=== PATIENT | male | born 1950 | race Caucasian/White ===

== ENCOUNTER 2019-05-20 10:13 | Inpatient (IN) | payer MEDICARE, OTHER ==
--- NOTE | 2019-05-20 10:29 | ED ---
Shortness of Breath - HPI Summary HPI Summary: This patient is a 69 year old male presenting to [facility] with a chief complaint of hypertension and SOB since one week ago. Pt c/o swelling and rash in feet bilaterally, and abdominal distension. Pt denies any fever, chills, erythema of eyes, sore throat, CP, cough, abdominal pain, N/V, dysuria, hematuria, myalgia, or dizziness. - History of Current Complaint Chief Complaint: EDShortnessOfBreath Hx Obtained From: Patient Onset/Duration: Lasting Weeks Dyspnea At: Rest Associated Signs & Symptoms: Edema - Allergy/Home Medications Allergies/Adverse Reactions: Allergies Allergy/AdvReac Type Severity Reaction Status Date / Time No Known Allergies Allergy Verified 05/20/19 10:14 Home Medications: Home Medications NK [No Home Medications Reported] 05/20/19 [History Confirmed 05/20/19] PMH/Surg Hx/FS Hx/Imm Hx Cardiovascular History: Reports: Hx Hypertension GI History: Reports: Hx Gastroesophageal Reflux Disease, Hx Hiatal Hernia Infectious Disease History: No Infectious Disease History: Denies: Traveled Outside the [place] in Last 30 Days - Family History Known Family History: Positive: Hypertension - Social History Lives: Alone Alcohol Use: None Review of Systems Negative: Fever, Chills Negative: Erythema Negative: Sore Throat Positive: Other - Hypertension. Negative: Chest Pain Positive: Shortness Of Breath. Negative: Cough Positive: Other - Abdominal distension. Negative: Abdominal Pain, Vomiting, Nausea Negative: dysuria, hematuria Positive: Edema. Negative: Myalgia Positive: Rash Neurological: Other - Neg: Dizziness All Other Systems Reviewed And Are Negative: No Physical Exam - Summary Physical Exam Summary: Constitutional: Well-developed, Well-nourished, Alert. (-) Distressed Skin: Warm, Dry HENT: Normocephalic; Atraumatic Eyes: Conjunctiva normal Neck: Musculoskeletal ROM normal neck. (-) JVD, (-) Stridor, (-) Tracheal deviation Cardio: Rhythm regular, rate tachycardic, Heart sounds normal; Intact distal pulses; The pedal pulses are 2+ and symmetric. Radial pulses are 2+ and symmetric. (-) Murmur Pulmonary/Chest wall: Effort normal. (-) Respiratory distress, (-) Wheezes, (+) Rales Abd: Soft, (-) tenderness, (-) Distension, (-) Guarding, (-) Rebound Musculoskeletal: (+) 2+ pitting edema up to the mid calf with weeping. Lymph: (-) Cervical adenopathy Neuro: Alert, Oriented x3 Psych: Mood and affect Normal Triage Information Reviewed: Yes Vital Signs On Initial Exam: Initial Vitals Temp Pulse Resp BP Pulse Ox 97.4 F 127 40 185/133 95 05/20/19 10:14 05/20/19 10:14 05/20/19 10:14 05/20/19 10:14 05/20/19 10:14 Vital Signs Reviewed: Yes Diagnostics - Vital Signs Vital Signs Temp Pulse Resp BP Pulse Ox 05/20/19 10:14 97.4 F 127 40 185/133 95 - Laboratory Result Diagrams: 05/20/19 12:38 05/20/19 14:25 Lab Statement: Any lab studies that have been ordered have been reviewed, and results considered in the medical decision making process. - Radiology CXR Radiology Interpretation Completed By: Radiologist Summary of Radiographic Findings: Cardiomegaly with no definite evidence of pneumonia. ED Provider has reviewed this report. - EKG 1054 Cardiac Rate: Tachycardia - 105 BPM EKG Rhythm: Sinus Rhythm Summary of EKG Findings: TWI in V5 and V6 Course/Dx - Course Course Of Treatment: This patient is a 69 year old male presenting to [facility] with a chief complaint of shortness of breath. CXR revealed cardiomegaly. Dr. Staton, hospitalist, accepted the patient for admission. This plan was discussed with the pateint and she was agreeable with this plan. - Diagnoses Provider Diagnoses: CHF exacerbation - Critical Care Time Critical Care Time: 30-74 min - 60 mins Discharge ED - Sign-Out/Discharge Documenting (check all that apply): Patient Departure - Admission Patient Received Moderate/Deep Sedation with Procedure: No - Discharge Plan Condition: Stable Disposition: ADMITTED TO [facility] - Attestation Statements Document Initiated by Scribe: Yes Documenting Scribe: Tone Case Provider For Whom Scribe is Documenting (Include Credential): Aneudy Santillan MD Scribe Attestation: Tone Nelson, scribed for Aneudy Santillan MD on 05/20/19 at 1628. Status of Scribe Document: Ready
[2019-05-20] MEDS ORDERED: Furosemide IV* 10 MG/ML VIAL (40 MG) IV SLOW PU ONE (10:42)
[2019-05-20] MEDS ORDERED: Nitro 2% OINT* (Nitroglycerin) 1 INCH/PAK PAK TOPICAL ONE (10:42)
[2019-05-20 13:35] LABS: Albumin 3.7 g/dL (3.2-5.2); CO2 Carbon Dioxide 19 mmol/L (22-32); Calcium 8.8 mg/dL (8.6-10.3); Chloride 108 mmol/L (101-111); Sodium 139 mmol/L (135-145)
[2019-05-20 13:38] LABS: Troponin I 0.23 ng/mL (<0.04)
[2019-05-20 13:41] LABS: ALT 30 U/L (7-52); Albumin/Globulin Ratio 1.5 (1-3); Alkaline Phosphatase 121 U/L (34-104); BUN/Creatinine Ratio 18.8 (8-20); Blood Urea Nitrogen 28 mg/dL (6-24); EGFR African American 56.8 (>60); EGFR Non-African American 46.9 (>60); Globulin 2.4 g/dL (2-4); Glucose 90 mg/dL (70-100); Total Protein 6.1 g/dL (6.4-8.9)
[2019-05-20 13:44] LABS: Anion Gap 12 mmol/L (2-11)
[2019-05-20 13:51] LABS: ABS Eosinophils 0.1 10^3/ul (0-0.6); ABS Lymphocytes 0.6 10^3/ul (1.0-4.8); ABS Monocytes 0.9 10^3/ul (0-0.8); ABS Neutrophils 7.8 10^3/ul (1.5-7.7); Eosinophil % 0.6 %; Hematocrit 52 % (42-52); Hemoglobin 16.8 g/dL (14.0-18.0); Lymphocyte % 6.6 %; Mean Corpuscular HGB Conc 32 g/dL (31-36); Mean Corpuscular Hemoglobin 30 pg (27-31); Mean Corpuscular Volume 93 fL (80-94); Mean Platelet Volume 10.7 fL (7.4-10.4); Platelet Count 206 10^3/uL (150-450); Red Blood Count 5.57 10^6 /uL (4.18-5.48); Red Cell Distribution Width 18 % (10-15); White Blood Count 9.4 10^3/uL (3.5-10.8)
[2019-05-20] MEDS ORDERED: ED ceFAZolin 1 GM/50 ML 1 GM/50 ML PREMIX.SET IVPB ONE (15:19)
[2019-05-20] MEDS ORDERED: Metoprolol Tartrate IV* 1 MG/ML 5 ML VIAL IV PRN (15:30)
[2019-05-20] MEDS ORDERED: ceFAZolin 1 GM* X ONE DOSE (AddVan) IVPB ×2 (16:00)
[2019-05-20] MEDS ORDERED: NS 0.9% 50 ML* 50 ML with ceFAZolin 1 GM ADVAN(*) 1 GM IVPB ONE ×2 (16:00)
[2019-05-20] MEDS ORDERED: Perflutren Lipid Microsphere* 3 ML VIAL ONE (16:14)
[2019-05-20] MEDS ORDERED: Metoprolol Tartrate TAB* 25 MG PO SCH (17:00)
--- NOTE | 2019-05-20 17:10 | ECHO ---
*[facility]* [place] [address] Fax #: [phone] Transthoracic Echocardiogram Patient: Tone Borjas : 1950 Study Date: 05/20/2019 Age: 69 Gender: M HR: 131 bpm Height: 65 in /165.1 cm BSA: 2.17 m^2 Weight: 249.5 lb /113.4 kg BMI: 41.6 kg/m^2 *Industrial Sewer: * Elva Hickman [facility] *Referring Physician: * April AzarReading Physician: Luigi Rivera MD Indications: Congestive Heart Failure. SOB. History: Edema. Risk factors: Hypertension. Conclusions Summary: - Left ventricle: The cavity size is normal. Wall thickness is moderately increased. Systolic function is severely reduced. The estimated ejection fraction is 25-30%. Moderate diffuse hypokinesis. - Right ventricle: The cavity size is normal. Systolic function is mildly to moderately reduced. - Left atrium: The atrium is mildly dilated. - Aortic valve: There is mild to moderate regurgitation. Recommendations: None prior for comparison. Study data: Transthoracic echocardiogram. Procedure: Transthoracic echocardiography was performed. Image quality was suboptimal. The study was technically limited due to body habitus. Intravenous Definity , 6 mlswas administered. Image enhancement administered by Complete 2D, spectral Doppler, and color flow Doppler. Location: Emergency department. Rhythm: Atrial fibrillation. Findings Left ventricle: The cavity size is normal. Wall thickness is moderately increased. Systolic function is severely reduced. The estimated ejection fraction is 25-30%. Moderate diffuse hypokinesis. Doppler parameters are consistent with abnormal left ventricular relaxation (grade 1 diastolic dysfunction). Right ventricle: Not well visualized. The cavity size is normal. Systolic function is mildly to moderately reduced. Ventricular septum: The ventricular septum is normal. Left atrium: Well visualized. The atrium is mildly dilated. Right atrium: Well visualized. The atrium is normal in size. Mitral valve: Well visualized. The leaflets are normal thickness. There is no evidence of stenosis. There is no significant regurgitation. Aortic valve: Well visualized. The valve is trileaflet. The leaflets are normal thickness. There is no evidence of stenosis. There is mild to moderate regurgitation. Tricuspid valve: Poorly visualized. There is no evidence of stenosis. There is trace to mild regurgitation. Regurgitatiopn may be underestimated due to poor image quality. Pulmonic valve: Well visualized. There is no evidence of stenosis. Aorta: The aorta is well visualized and normal size. The aortic root appears normal. Pericardium: There is no pericardial effusion. No evidence of pleural fluid accumulation. Pulmonary arteries: Not well visualized. Systolic pressure is within the normal range. Systemic veins: Not well visualized. Pulmonary veins: Visualization of the pulmonary venous anatomy is incomplete, but a significant abnormality is unlikely. Measurements Left ventricle Value Ref Aortic valve Value Ref JONATHAN, LAX 4.7 cm 4.2 - Trista diam, ED 2.3 cm ----- 5.8 Trista diam/bsa, ED 1.1 cm/m^2 ----- ESD, LAX 3.8 cm 2.5 - Peak v, S 1.14 m/sec ----- 4.0 VTI, S 18.5 cm ----- FS, LAX (L) 20 % 25 - 43 Mean grad, S 3.0 mm Hg ----- PW, ED, LAX (H) 1.9 cm 0.6 - Peak grad, S 5.0 mm Hg ----- 1.0 LVOT/AV, VTI ratio 0.71 ----- FS (L) 20 % 25 - 43 AR peak v 2.88 m/sec ----- Mid-wall FS 6 % -------- AR PHT 278 ms ----- PW, ED (H) 1.9 cm 0.6 - AR peak grad 33 mm Hg ----- 1.0 PW/ID, ED 0.4 -------- Mitral valve Value Ref E', lat trista, TDI (L) 6.8 cm/sec >=10.0 Peak E 1.07 m/sec -- --- E/e', lat trista, TDI 16 -------- Decel time 99 ms ----- E', med trista, TDI (L) 4.0 cm/sec >=7.0 Peak grad, D 4.6 mm Hg -- --- E/e', med trista, TDI 27 -------- E', avg, TDI 5.4 cm/sec -------- Pulmonic valve Value Ref E/e', avg, TDI (H) 20 <=14 Peak v, S 0.42 m/sec -- --- Peak grad, S 1.0 mm Hg ----- LVOT Value Ref Peak nyla, S 0.85 m/sec -------- Tricuspid valve Value Ref VTI, S 13.1 cm -------- TR peak v 2.79 m/sec <=2.8 Mean grad, S 1 mm Hg -------- Peak RV-RA grad, S 31 mm Hg ----- Max TR nyla 2.45 m/sec ----- Ventricular septum Value Ref IVS, ED (H) 1.9 cm 0.6 - Aortic root Value Ref 1.0 Root diam (H) 4.5 cm <4.3 Root max diam, ED (H) 4.5 cm <4.3 Right ventricle Value Ref JONATHAN, LAX 4.2 cm -------- Aortic arch Value Ref JONATHAN minor ax, A4C (H) 4.2 cm 1.9 - Arch diam 3.1 cm ----- mid 3.5 Decending aorta Value Ref Left atrium Value Ref Lai peak nyla 0.51 m/sec ----- ML dim, A4C 5.7 cm -------- SI dim, A4C 6.4 cm -------- Vol, ES, 1-p A2C 54 ml 18 - 58 Vol/bsa, ES, 1-p 25 ml/m^2 11 - 43 A2C Right atrium Value Ref SI dim, ES (H) 6.7 cm 3.4 - 5.3 ML dim, ES, A4C 3.9 cm 2.6 - 4.4 SI dim, ES, A4C (H) 6.7 cm 3.4 - 5.3 SI dim/bsa, ES, A4C (H) 3.1 cm/m^2 1.8 - 3.0 Legend: (L) and (H) jose miguel values outside specified reference range. Prepared and electronically signed by Luigi Maier MD 05/20/2019 17:10
[2019-05-20] MEDS: Furosemide IV* 10 MG/ML VIAL (40 MG) IV SLOW PU SCH (17:54)
[2019-05-20] MEDS: Carvedilol TAB* 6.25 MG PO SCH ×2 (17:54→20:59)
--- NOTE | 2019-05-20 18:24 | CONSULT ---
Subjective Date of Service: 05/20/19 Interval History: Date of consult 05/20/2019 Service: Hospitalist PCP: None current CC: shortness of breath, edema Reason for consult: CHF HPI: Mr. Borjas is a very nice 69 year old man who is admitted with worsening dyspnea and edema and diagnosed with new congestive heart failure and is severely hypertensive. His brother Kevin who is a patient of Dr. Carpenter is with patient. Kevin has been trying to get an appointment for Tone with Dr. Vicente (they have heard Dr. Vicente speak on the radio) to establish Primary care. Patient used to see Dr. Vagras Monet years ago and his only prior major medical issue was what sounds like a bleeding hiatal hernia that was surgically years ago. His blood pressure was also elevated in the past. There have been no issues since, he is not anemic, and I would not have any more than usual concern about antiplatelets or anticoagulants. He did not have insurance so was not able to see doctors in the past but now has medicare. He had been feeling unwell since this winter. He's had progressive VILA, weight gain, edema , abdominal bloating, orthopnea and PND. There has been no chest pain, sustained palpitations or syncope. PAST MEDICAL HISTORY: Hypertension PAST SURGICAL HISTORY: Status post hiatal hernia repair in the early . Soc hx: Had used a lawnmower for 18 years [email or web address] [employer] and he states he did very well with this and then went on social security. No excessive alcohol use No tobacco use No drug use Lives in an apartment above brothers garage ALLERGIES: No known drug allergies. FAMILY HISTORY: Father had a history of prostate cancer. Mother had a history of diabetes. Medications Active Medications: Acetaminophen (Tylenol Tab*) 650 mg PO Q6H PRN PRN Reason: MILD PAIN or TEMP > 100.4 Aspirin (Aspirin Ec Tab*) 81 mg PO DAILY [facility] Carvedilol (Coreg Tab*) 6.25 mg PO BID [facility] Last Admin: 05/20/19 17:54 Dose: 6.25 mg Furosemide (Lasix Iv*) 40 mg IV SLOW PU DAILY [facility] Last Admin: 05/20/19 17:54 Dose: 40 mg Heparin Sodium (Porcine) (Heparin Vial(*)) 5,000 units SUBCUT Q8HR [facility] Cefazolin Sodium 1 gm/ Sodium (Chloride) 50 mls @ 200 mls/hr IVPB Q8H [facility] Metoprolol Tartrate (Lopressor Iv*) 5 mg IV Q4H PRN PRN Reason: SBP>180 or HR>120 Nitroglycerin (Nitroglycerin 2% Oint*) 1 inch TOPICAL 0800,1400 [facility]; Protocol Nystatin (Nystatin Top Powder*) 1 applic TOPICAL TID [facility] Pharmacy Profile Note (Nitro Patch/Oint Remove*) 1 note PATCH OFF 1400,2000 [facility] Home Medications: NK [No Home Medications Reported] 05/20/19 [History Confirmed 05/20/19] Review of Systems - Measurements Intake and Output: Intake and Output Last 24 Hours 05/18/19 05/19/19 05/20/19 05/21/19 06:59 06:59 06:59 06:59 Intake Total 100 Output Total 1300 Balance -1200 Weight 262 lb Intake: IV Fluids 100 Output: Dodd 1300 Other: Date of Last Bowel 05/20/2019 Movement # Bowel Movements 1 Estimated Stool Amount Medium - Review of Systems Constitutional Symptoms: Positive: Weight Gain, Weakness, Fatigue Dermatology: Positive: Rash, Skin Lesions HEENT: Negative: Change in Hearing, Vertigo Eyes: Negative: Change in Vision, Double Vision Thyroid: Positive: Weight Gain Negative: Weight Loss Pulmonary: Positive: Cough, Respiratory Distress, Shortness of Breath, Exercise Intolerance Negative: Hemoptysis, Wheezing, COPD, Asthma, Home Oxygen Cardiology: Positive: Shortness of Breath, Swelling of Ankles, Edema, Orthopnea Negative: Chest Pain, Palpitations, Peripheral Vascular Dis, Syncope, Claudication Gastroenterology: Negative: Abdominal Pain, Nausea, Vomiting, Anorexia, Haematemesis, Melena Genital - Urinary: Negative: Dysuria, Hematuria Musculoskeletal: Negative: Joint Pain, Joint Stiffness Endocrinology: Positive: Obesity Negative: Diabetes, Polydipsia, Polyuria Hematologic/Lymphatic: Negative: Use of Anticoagulant, Use of Antiplatelet Drugs Neurology: Negative: Hx of Stroke\TIA, Hx Seizures Psychiatry: Negative: Unusual Anxiety, Suicidal Ideation Allergic/Immunologic: Negative: Hx HIV, Immunocompromise Review of Systems Statement: All other review of systems negative, unless stated above. Objective Vital Signs: Temp Pulse Resp BP Pulse Ox 98.6 F 108 22 159/103 99 05/20/19 17:32 05/20/19 17:32 05/20/19 17:32 05/20/19 17:32 05/20/19 17:32 Appearance: obese, conversant, appears dyspneic Ears/Nose/Mouth/Throat: Clear Oropharnyx, Mucous Membranes Moist Neck: Trachea Midline, - - uncertain jvp Respiratory: - - tachypnea and increased work of breathing, no clear rales Cardiovascular: - - tachycardic, irregular, +s3, no significant murmur Abdominal: - - obese, soft Extremities: - - 3+ edema with what appears to be excoriations from fingernails and some ulcerations Neurological: Alert and Oriented x 3 Laboratory Results: 05/20/19 12:38 05/20/19 14:25 Total Bilirubin 1.30 mg/dL (0.2-1.0) H 05/20/19 12:38 AST TNP 05/20/19 14:25 ALT 30 U/L (7-52) 05/20/19 12:38 Alkaline Phosphatase 121 U/L (34-104) H 05/20/19 12:38 B-Natriuretic Peptide > 1300 pg/mL (<=100) H 05/20/19 12:38 Total Protein 6.1 g/dL (6.4-8.9) L 05/20/19 12:38 Albumin 3.7 g/dL (3.2-5.2) 05/20/19 12:38 Globulin 2.4 g/dL (2-4) 05/20/19 12:38 Albumin/Globulin Ratio 1.5 (1-3) 05/20/19 12:38 05/20/19 12:38 Troponin I 0.23 H* Diagnostic Imaging: Transthoracic Echocardiogram Study Date: 05/20/2019 Summary: - Left ventricle: The cavity size is normal. Wall thickness is moderately increased. Systolic function is severely reduced. The estimated ejection fraction is 25-30%. Moderate diffuse hypokinesis. - Right ventricle: The cavity size is normal. Systolic function is mildly to moderately reduced. - Left atrium: The atrium is mildly dilated. - Aortic valve: There is mild to moderate regurgitation. CXR 05/20/19 IMPRESSION: Cardiomegaly with no definite evidence of pneumonia. EKG Data: EKG admission: sinus tachycardia 105 bpm with multiple PAC's, PVC, anterolateral TWI, grossly unchanged on repeat Assessment/Plan 1. New onset acute systolic HF - LVEF 25% - No evidence of an acute type 1 [place] 2. Hypertension 3. Obesity 4. ? CKD 5. Cellulitis - Continue aspirin 81 mg po daily for now - Start coreg 6.25 mg po bid (ordered) - Start valsartan 20 mg po bid (ordered) - Continue topical nitrates - Continue IV diuresis, trend i/o, weights, bmp - Can stop trending troponins - Continue antibiotics per primary service Plan on cardiac catheterization to determine if CHF is ischemic related and have intent for revascularization this hospitalization Risks, benefits, and alternative discussed and patient wishes to proceed. Patient will need to establish with a PCP after discharge, hopefully through Dr. Vicente's office. Thank you for allowing me to participate in the cardiovascular care of this patient. Please do not hesitate to contact me with questions or concerns.
[2019-05-20 19:03] LABS: Troponin I 0.28 ng/mL (<0.04)
[2019-05-20 19:04] LABS: Potassium Redraw 4.3 mmol/L (3.5-5.0)
--- NOTE | 2019-05-20 20:01 | HP ---
CC: Dr. Luigi Maier HISTORY AND PHYSICAL: DATE OF ADMISSION: 05/20/19 TIME OF EVALUATION: 2:45 p.m. PRIMARY CARE PROVIDER: The patient has no primary care provider. CONSULTING CASE MANAGEMENT ASSISTANT: Dr. Luigi Maier CHIEF COMPLAINT: "I cannot take it anymore." HISTORY OF PRESENT ILLNESS: Mr. Borjas is a 69-year-old male with no significant past medical history but has not seen a physician in 15 years. He used to be Dr. Vargas Monet's patient and states that he would have a physical every year and his last visit was 15 years ago. He states that at that time he had "borderline hypertension" and he did not return for any further evaluation. He states since early summer this year, he started to have some shortness of breath initially with exertion and this has progressed to dyspnea with minimal exertion, orthopnea, and paroxysmal nocturnal dyspnea. He initially thought his shortness of breath was secondary to the heat, so he bought a fan, then his brother bought an AC, but he continued to have shortness of breath. He lives in an apartment on top of his brother's garage and it got to the point that he became so short of breath going upstairs that he has now left his apartment for the past 4 to 5 weeks. He also described bilateral lower extremity edema that he initially states started a couple days ago, but with further questioning, seems to have started at the same time of the shortness of breath. He describes a weight gain of almost 40 pounds. His shoes do not fit him anymore and he states that he could not zip up his pants. Last week, he started to notice a rash on his feet that has progressed up to lower extremities. He also describes a rash on his belly. He denies fever, chills, nausea, vomiting, chest pain, palpitations, or urinary complaints. In the emergency room, he was found to be retaining urine and a Dodd catheter was placed with drainage of greater than 1 L. PAST MEDICAL HISTORY: Hypertension as above. PAST SURGICAL HISTORY: Status post hiatal hernia repair in the early . MEDICATION LIST: None. He also takes no supplements, [id number] medications. ALLERGIES: No known drug allergies. FAMILY HISTORY: Father had a history of prostate cancer. Mother had a history of diabetes. SOCIAL HISTORY: The patient denies tobacco, alcohol, and drug use. He lives in an apartment at his brother's home and he is his surrogate decision maker, Kevin Borjas, phone number is [phone]. REVIEW OF SYSTEMS: A 14-point review of systems was performed, and all the pertinent negative and positive findings are in the HPI. PHYSICAL EXAMINATION GENERAL: The patient is a pleasant elderly gentleman, sitting up in the ED stretcher, in mild respiratory distress. VITAL SIGNS: Temperature 97.4, heart rate is 94, respiratory rate is 26, oxygen saturation 92% on room air, blood pressure is 154/103. HEENT: Pupils are equal. Moist mucous membranes. CHEST: Breath sounds bilaterally with bibasilar crackles and diffusely coarse. CVS: Normal S1, S2. Irregular rhythm. ABDOMEN: Obese, soft, nontender, nondistended. Organomegaly, it is difficult to palpate due to obese abdomen. EXTREMITIES: The patient has severe bilateral lower extremity edema extending all the way up to his thighs and abdomen. NEURO: He is alert and oriented x3. Able to move all 4 extremities. SKIN: The patient has erythema to bilateral lower extremities extending from foot all the way up to his knee. He has an abrasion on the right forefoot with weeping of clear fluid. He also has erythematous rash to his abdomen associated with some pinpoint lesions to his groin area and also under his neck folds. LABORATORY AND IMAGING DATA: The patient had a CBC that showed WBC of 9.4, hemoglobin of 16.8, hematocrit of 52, platelets of 206,000, neutrophils 83%. Chemistry showed a sodium of 139, potassium was not measured, chloride is 108, bicarb is 19, anion gap is 12, BUN 28, creatinine of 1.49, glucose is 90. Lactic acid is 2.1. Calcium is 8.8. LFTs show a total bilirubin of 1.3, alk phos of 121. First troponin was 0.23. BNP was greater than 1300. Chest x-ray showed cardiomegaly with no evidence of pneumonia. To my read and review of the film, I think there is bilateral vascular congestion. EKG done on 05/20/19 at 10:54 a.m. shows multifocal atrial tachycardia with a heart rate of 105 and PVCs. There is T wave flattening in V4, T wave inversions in V5 and V6. Repeat EKG was done at 3:34 p.m. and still shows multifocal atrial tachycardia at 170 beats per minute with PVCs and the same T wave inversions as described above. ASSESSMENT AND PLAN: Mr. Borjas is a 69-year-old male with limited past medical history but that has not seen a physician in 15 years who presents to the emergency room with months of progressive dyspnea, lower extremity edema, and erythema, found to have newly diagnosed congestive heart failure. 1. Acute congestive heart failure with exacerbation. The patient will be admitted as inpatient to the telemetry floor for further workup. He will need an echocardiogram and we will continue diuresis as tolerated. This is likely multifactorial in the setting of hypertensive cardiomyopathy, multifocal atrial tachycardia, and possible coronary artery disease. Cardiology consultation was requested with Dr. Maier. We will continue diuresis with furosemide and monitor I's and O's and daily weights. 2. Multifocal atrial tachycardia. There was some question initially if this was atrial fibrillation, but I have confirmed with Dr. Maier that he thinks this is multifocal atrial tachycardia. The plan at this point is for rate control with a beta-sara. We would discuss the option for rate control in the setting of acute congestive heart failure and Dr. Maier thinks metoprolol would be the best option at this time, especially considering his hypertension. 3. Troponin elevation. Likely associated with his congestive heart failure and multifocal atrial tachycardia, but we are going to trend troponins. When he is more stable, we may consider ischemic workup. At this point, he is chest pain-free and denies episodes of chest pain in the past. 4. Cellulitis. I believe the patient has bilateral lower extremity cellulitis secondary to edema and excoriations. He will be started on cefazolin. The rash on his groin, abdomen, and neck folds is suggestive of a fungal infection with bacterial superinfection, so he is going to receive nystatin powder and cefazolin should cover that too. The patient meets systemic inflammatory response syndrome criteria with tachycardia, tachypnea, but I believe those are most likely secondary to his cardiac disease and not secondary to sepsis. The same rationale applies to the lactic acid. I believe this represents poor perfusion in the setting of congestive heart failure and not severe sepsis. The patient does have an infection, but I do not think those findings are related to his cellulitis and they are related to his congestive heart failure. 5. Acute kidney injury with metabolic acidosis. This is likely secondary to poor perfusion in the setting of congestive heart failure. We will continue to diurese and as we are able to improve his hemodynamics, we hope that his renal function will improve. There is probably also component of post renal failure as the patient had urinary retention likely secondary to benign prostatic hyperplasia. A Dodd catheter was placed and we will continue to follow. I am going to repeat his BMP later tonight and if he is still acidotic, we may need to add some Bicitra to his regimen. 6. DVT prophylaxis. The patient has a score of 5 on the DVT prophylaxis Assessment Guide and he will be started on subcutaneous heparin. SCDs are contraindicated in the setting of lower extremity edema and infection. 7. Code status was discussed with the patient and he wishes to be a full code. TIME SPENT: Approximately 65 minutes were spent with the patient and family interview, medical records review, physical examination to complete this admission, more than half of this time was spent [id number] with the patient and coordination of care. [id number]/[facility] #: [id number] KRIS
[2019-05-20] MEDS: Valsartan TAB* 40 MG PO SCH (20:59)
[2019-05-20] MEDS: Nystatin TOP POWDER* 15 GM BTL TOPICAL SCH (21:02)
[2019-05-20] MEDS: Heparin VIAL(*) 5000 UNITS/ML VIAL (FIVE THOUSAND) SUBCUT SCH (22:08)
[2019-05-21] MEDS: ceFAZolin 1 GM ADVAN(*) 1 GM in NS 0.9% 50 ML* 50 ML IVPB SCH ×3 (00:06→16:47)
[2019-05-21 00:19] LABS: CO2 Carbon Dioxide 21 mmol/L (22-32); Calcium 8.4 mg/dL (8.6-10.3); Chloride 106 mmol/L (101-111); Sodium 139 mmol/L (135-145)
[2019-05-21 00:25] LABS: BUN/Creatinine Ratio 18.7 (8-20); Blood Urea Nitrogen 29 mg/dL (6-24); EGFR African American 54.2 (>60); EGFR Non-African American 44.8 (>60); Glucose 109 mg/dL (70-100)
[2019-05-21 00:43] LABS: Anion Gap 12 mmol/L (2-11)
[2019-05-21 02:13] LABS: Troponin I 0.24 ng/mL (<0.04)
[2019-05-21 05:10] LABS: ABS Lymphocytes 0.4 10^3/ul (1.0-4.8); ABS Monocytes 1.1 10^3/ul (0-0.8); ABS Neutrophils 10.7 10^3/ul (1.5-7.7); Eosinophil % 0.1 %; Hematocrit 46 % (42-52); Hemoglobin 14.9 g/dL (14.0-18.0); Lymphocyte % 3.2 %; Mean Corpuscular HGB Conc 33 g/dL (31-36); Mean Corpuscular Hemoglobin 30 pg (27-31); Mean Corpuscular Volume 91 fL (80-94); Mean Platelet Volume 10.9 fL (7.4-10.4); Platelet Count 172 10^3/uL (150-450); Red Blood Count 5.06 10^6 /uL (4.18-5.48); Red Cell Distribution Width 17 % (10-15); White Blood Count 12.2 10^3/uL (3.5-10.8)
[2019-05-21 05:30] LABS: Urine Appearance Cloudy; Urine Bacteria Absent (Absent); Urine Bilirubin Negative (Negative); Urine Blood 3+ (Negative); Urine Color Yellow; Urine Glucose Negative (Negative); Urine Ketones Negative (Negative); Urine Nitrite Negative (Negative); Urine Protein 2+(100 mg/dL) (Negative); Urine Red Blood Cell 3+(>10/hpf) (Absent); Urine Specific Gravity 1.013 (1.010-1.030); Urine Urobilinogen Negative (Negative); Urine White Blood Cell 2+(11-20/hpf) (Absent)
[2019-05-21 05:49] LABS: Anion Gap 8 mmol/L (2-11); BUN/Creatinine Ratio 18.5 (8-20); Blood Urea Nitrogen 27 mg/dL (6-24); CO2 Carbon Dioxide 27 mmol/L (22-32); Calcium 8.3 mg/dL (8.6-10.3); Chloride 105 mmol/L (101-111); Cholesterol 93 mg/dL; EGFR African American 58.1 (>60); Glucose 90 mg/dL (70-100); HDL Cholesterol 30.8 mg/dL; LDL Cholesterol 48 mg/dL; Potassium 3.6 mmol/L (3.5-5.0); Sodium 140 mmol/L (135-145); TSH (Thyroid Stimulating Horm) 2.09 mcIU/mL (0.34-5.60); Triglycerides 69 mg/dL; Troponin I 0.31 ng/mL (<0.04)
[2019-05-21] MEDS: Heparin VIAL(*) 5000 UNITS/ML VIAL (FIVE THOUSAND) SUBCUT SCH ×3 (06:09→21:55)
[2019-05-21] MEDS ORDERED: Nitro 2% OINT* (Nitroglycerin) 1 INCH/PAK PAK TOPICAL SCH (08:00)
[2019-05-21] MEDS: Valsartan TAB* 40 MG PO SCH ×2 (08:12→21:56)
[2019-05-21] MEDS: Nystatin TOP POWDER* 15 GM BTL TOPICAL SCH ×3 (08:12→20:21)
[2019-05-21] MEDS: Aspirin EC TAB* 81 MG TAB.EC PO SCH (08:12)
[2019-05-21] MEDS: Carvedilol TAB* 6.25 MG PO SCH ×2 (08:13→20:20)
[2019-05-21] MEDS: Furosemide IV* 10 MG/ML VIAL (40 MG) IV SLOW PU SCH (08:15)
--- NOTE | 2019-05-21 08:59 | PN ---
Subjective Date of Service: 05/21/19 Interval History: HOSPITALIST PROGRESS NOTE Patient seen and examined at bedside. Care reviewed and d/w Josiah Naqvi RN. He feels much improved, in good spirits this AM, eating his breakfast with gusto. States he was able to sleep well last night, despite hypoxia and asymptomatic episode of NSVT. Family History: Unchanged from Admission Social History: Unchanged from Admission Past Medical History: Unchanged from Admission Objective Active Medications: Acetaminophen (Tylenol Tab*) 650 mg PO Q6H PRN PRN Reason: MILD PAIN or TEMP > 100.4 Aspirin (Aspirin Ec Tab*) 81 mg PO DAILY [facility] Last Admin: 05/21/19 08:12 Dose: 81 mg Carvedilol (Coreg Tab*) 6.25 mg PO BID [facility] Last Admin: 05/21/19 08:13 Dose: 6.25 mg Furosemide (Lasix Iv*) 40 mg IV SLOW PU DAILY [facility] Last Admin: 05/21/19 08:15 Dose: 40 mg Heparin Sodium (Porcine) (Heparin Vial(*)) 5,000 units SUBCUT Q8HR [facility] Last Admin: 05/21/19 06:09 Dose: 5,000 units Cefazolin Sodium 1 gm/ Sodium (Chloride) 50 mls @ 200 mls/hr IVPB Q8H [facility] Last Admin: 05/21/19 08:34 Dose: 200 mls/hr Influenza Virus Vaccine (Fluarix Quad [id number] Syr) 0.5 ml IM .ONCE ONE Stop: 05/21/19 09:01 Metoprolol Tartrate (Lopressor Iv*) 5 mg IV Q4H PRN PRN Reason: SBP>180 or HR>120 Nitroglycerin (Nitroglycerin 2% Oint*) 1 inch TOPICAL 0800,1400 [facility]; Protocol Last Admin: 05/21/19 08:15 Dose: 1 inch Nystatin (Nystatin Top Powder*) 1 applic TOPICAL TID [facility] Last Admin: 05/21/19 08:12 Dose: 1 applic Pharmacy Profile Note (Nitro Patch/Oint Remove*) 1 note PATCH OFF 1400,2000 [facility] Pneumococcal Polyvalent Vaccine (Pneumococcal Vac 23-Polyvalent*) 0.5 ml IM .ONCE ONE Stop: 05/21/19 09:01 Spironolactone (Aldactone Tab*) 25 mg PO DAILY [facility] Valsartan (Diovan Tab*) 20 mg PO BID [facility] Last Admin: 05/21/19 08:12 Dose: 20 mg Vital Signs - 8 hr 05/21/19 05/21/19 05/21/19 03:15 04:45 07:15 Temperature 97.6 F 97.6 F 98.0 F Pulse Rate 77 77 78 Respiratory 31 20 Rate Blood Pressure 133/95 133/84 147/78 (mmHg) O2 Sat by Pulse 96 95 96 Oximetry Oxygen Devices in Use Now: Nasal Cannula Appearance: Elderly gentleman sitting up in bed in NAD. Eyes: No Scleral Icterus Ears/Nose/Mouth/Throat: Mucous Membranes Moist Neck: Trachea Midline Respiratory: Symmetrical Chest Expansion and Respiratory Effort, - - BS+ bilaterally with bibasilar crackles Cardiovascular: - - Normal S1 and S2, irregular Abdominal: - - Soft, NT, ND, BS+, obese. Erythematous rash is much improved compared to yesterday, very faint. Extremities: - - Severe bilateral LE pitting edema. Erythema is much improved, weeping is minimal. Multiple excoriations scabbed over Neurological: Alert and Oriented x 3, NL Muscle Strength and Tone Result Diagrams: 05/21/19 04:50 05/21/19 06:00 Assess/Plan/Problems-Billing Assessment: Mr Borjas is a 69yo M with no PMH, who has not seen a physician in 15 years ; who presented to ED with months of progressive dyspnea on exertion, orthopnea , PND, edema with 40lbs weight gain, found to have newly diagnosed CHF. - Patient Problems (1) Acute hypoxemic respiratory failure Comment: - Secondary to CHF exacerbation. - Continue supplemental O2. (2) Acute systolic (congestive) heart failure Comment: - Echo shows EF 25-30%, with moderate diffuse hypokinesis. - Continue diuresis with Furosemide and add Aldactone. - Monitor I/Os and daily weights. - Cardiology input appreciated - continue Aspirin, increase Coreg, Valsartan. - Will need cardiac cath when more stable. (3) Cellulitis Comment: - Abdome and bilateral LE cellulitis. - Much improved today. - Continue Cefazolin. (4) LORAINE (acute kidney injury) Comment: - Improving. - Metabolic acidosis and AG resolved with improved perfusion. (5) V-tach Comment: - 7 beats of Vtach overnight, asymptomatic. - Last night's EKG reviewed and prolonged QTc noted - d/w Cardiology - difficult to measure QTc precisely due to tachycardia. QT prolongation would predispose to polymorphic VT and he had monomorphic VT last night. - Continue to monitor on Telemetry. - Continue Coreg. (6) Multifocal atrial tachycardia Comment: - Continue Coreg. (7) DVT prophylaxis Comment: - SQ heparin. (8) Full code status Status and Disposition: Inpatient. Will order PT when more stable.
[2019-05-21] MEDS ORDERED: Influenza VAC *QUAD* 2019-20* 0.5 ML SYRINGE IM ONE (09:00)
[2019-05-21] MEDS ORDERED: Pneumococcal *Vac Polyvalent 0.5 ML VIAL IM ONE (09:00)
--- NOTE | 2019-05-21 09:48 | PN ---
Subjective Date of Service: 05/21/19 Interval History: f/u CHF Diuresing well, breathing improving remains markedly volume overloaded bp improving no chest pain or lightheadedness NSVT overnight Medications Active Medications: Acetaminophen (Tylenol Tab*) 650 mg PO Q6H PRN PRN Reason: MILD PAIN or TEMP > 100.4 Aspirin (Aspirin Ec Tab*) 81 mg PO DAILY [facility] Last Admin: 05/21/19 08:12 Dose: 81 mg Carvedilol (Coreg Tab*) 6.25 mg PO BID [facility] Last Admin: 05/21/19 08:13 Dose: 6.25 mg Furosemide (Lasix Iv*) 40 mg IV SLOW PU DAILY [facility] Last Admin: 05/21/19 08:15 Dose: 40 mg Furosemide (Lasix Iv*) 80 mg IV ONCE ONE Stop: 05/21/19 14:01 Heparin Sodium (Porcine) (Heparin Vial(*)) 5,000 units SUBCUT Q8HR [facility] Last Admin: 05/21/19 06:09 Dose: 5,000 units Cefazolin Sodium 1 gm/ Sodium (Chloride) 50 mls @ 200 mls/hr IVPB Q8H [facility] Last Admin: 05/21/19 08:34 Dose: 200 mls/hr Metoprolol Tartrate (Lopressor Iv*) 5 mg IV Q4H PRN PRN Reason: SBP>180 or HR>120 Nystatin (Nystatin Top Powder*) 1 applic TOPICAL TID [facility] Last Admin: 05/21/19 08:12 Dose: 1 applic Potassium Chloride (Klor Con Er Tab*) 40 meq PO ONCE ONE Stop: 05/21/19 14:01 Spironolactone (Aldactone Tab*) 25 mg PO DAILY [facility] Valsartan (Diovan Tab*) 40 mg PO BID [facility] Objective Vital Signs: Temp Pulse Resp BP Pulse Ox 98.0 F 78 20 147/78 96 05/21/19 07:15 05/21/19 07:15 05/21/19 07:15 05/21/19 07:15 05/21/19 07:15 Oxygen Devices in Use Now: None Appearance: nad, pleasant Ears/Nose/Mouth/Throat: Clear Oropharnyx, Mucous Membranes Moist Neck: Trachea Midline, - - uncertain jvp Respiratory: Symmetrical Chest Expansion and Respiratory Effort, Clear to Auscultation, - Cardiovascular: RRR, - - + s3 Abdominal: - - obese, soft Extremities: - - 3+ edema with what appears to be excoriations from fingernails and some ulcerations Neurological: Alert and Oriented x 3 Laboratory Results: 05/21/19 04:50 05/21/19 06:00 Total Bilirubin 1.30 mg/dL (0.2-1.0) H 05/20/19 12:38 AST TNP 05/20/19 14:25 ALT 30 U/L (7-52) 05/20/19 12:38 Alkaline Phosphatase 121 U/L (34-104) H 05/20/19 12:38 B-Natriuretic Peptide > 1300 pg/mL (<=100) H 05/20/19 12:38 Total Protein 6.1 g/dL (6.4-8.9) L 05/20/19 12:38 Albumin 3.7 g/dL (3.2-5.2) 05/20/19 12:38 Globulin 2.4 g/dL (2-4) 05/20/19 12:38 Albumin/Globulin Ratio 1.5 (1-3) 05/20/19 12:38 Triglycerides 69 mg/dL 05/21/19 06:00 Cholesterol 93 mg/dL 05/21/19 06:00 LDL Cholesterol 48 mg/dL 05/21/19 06:00 HDL Cholesterol 30.8 mg/dL 05/21/19 06:00 TSH 2.09 mcIU/mL (0.34-5.60) 05/21/19 06:00 mg 05/21/2019 2.0 05/20/19 05/20/19 05/21/19 12:38 18:35 01:01 Troponin I 0.23 H* 0.28 H* 0.24 H* 05/21/19 06:00 Troponin I 0.31 H* Diagnostic Imaging: Transthoracic Echocardiogram Study Date: 05/20/2019 Summary: - Left ventricle: The cavity size is normal. Wall thickness is moderately increased. Systolic function is severely reduced. The estimated ejection fraction is 25-30%. Moderate diffuse hypokinesis. - Right ventricle: The cavity size is normal. Systolic function is mildly to moderately reduced. - Left atrium: The atrium is mildly dilated. - Aortic valve: There is mild to moderate regurgitation. CXR 05/20/19 IMPRESSION: Cardiomegaly with no definite evidence of pneumonia. EKG Data: EKG admission: sinus tachycardia 105 bpm with multiple PAC's, PVC, anterolateral TWI, grossly unchanged on repeat Assessment/Plan 1. New onset acute systolic HF - LVEF 25% - No evidence of an acute type 1 ID 2. Hypertension 3. Obesity 4. Probable mild CKD 5. Cellulitis - Continue aspirin 81 mg po daily for now - Increase coreg from 6.25 mg to 12.5 po bid (ordered) - Increase valsartan from 20 to 40 mg po bid (ordered) - Start spironolactone 25 mg po daily (ordered) - D/c topical nitrates after current dosing expires (ordered) - Continue IV diuresis, trend i/o, weights, bmp. Give another 80 mg IV lasix with 40meq K this afternoon (ordered) - Continue antibiotics per Primary service Plan on cardiac catheterization to determine if CHF is ischemic related and have intent for revascularization this hospitalization once heart failure and cellulitis stabilized Thank you for allowing me to participate in the cardiovascular care of this patient. Please do not hesitate to contact me with questions or concerns.
[2019-05-21] MEDS: Spironolactone TAB* 25 MG PO SCH (10:40)
[2019-05-21] MEDS ORDERED: Nitro Patch/OINT Remove PATCH OFF SCH (14:00)
[2019-05-21] MEDS ORDERED: Potassium Chlor TAB* 20 MEQ TAB.ER PO ONE (14:00)
[2019-05-21] MEDS ORDERED: Furosemide IV* 10 MG/ML 10 ML VIAL (100 MG) IV ONE (14:00)
[2019-05-22] MEDS: ceFAZolin 1 GM ADVAN(*) 1 GM in NS 0.9% 50 ML* 50 ML IVPB SCH ×2 (00:25→09:01)
[2019-05-22] MEDS: Heparin VIAL(*) 5000 UNITS/ML VIAL (FIVE THOUSAND) SUBCUT SCH ×3 (05:37→21:07)
[2019-05-22 07:15] LABS: BUN/Creatinine Ratio 20.4 (8-20); Calcium 7.8 mg/dL (8.6-10.3); EGFR African American 62.5 (>60); EGFR Non-African American 51.7 (>60); Potassium 3.4 mmol/L (3.5-5.0)
[2019-05-22] MEDS ORDERED: Furosemide IV* 10 MG/ML 10 ML VIAL (100 MG) IV SCH (09:00)
[2019-05-22] MEDS: Spironolactone TAB* 25 MG PO SCH (09:01)
[2019-05-22] MEDS: Valsartan TAB* 40 MG PO SCH ×2 (09:01→21:05)
[2019-05-22] MEDS: Aspirin EC TAB* 81 MG TAB.EC PO SCH (09:01)
[2019-05-22] MEDS: Carvedilol TAB* 6.25 MG PO SCH ×2 (09:01→21:07)
[2019-05-22] MEDS: Nystatin TOP POWDER* 15 GM BTL TOPICAL SCH ×3 (09:03→21:06)
[2019-05-22] MEDS ORDERED: Potassium Chloride* LIQUID 20 MEQ/15 ML UDC PO ONE ×2 (09:35→12:01)
--- NOTE | 2019-05-22 09:42 | PN ---
Subjective Date of Service: 05/22/19 Interval History: f/u CHF Diuresing well, but too much oral fluid intake remains volume overloaded BP better no chest pain or lightheadedness tele NSR, pac and pvc's, no arrhythmias overnight Medications Active Medications: Acetaminophen (Tylenol Tab*) 650 mg PO Q6H PRN PRN Reason: MILD PAIN or TEMP > 100.4 Aspirin (Aspirin Ec Tab*) 81 mg PO DAILY [facility] Last Admin: 05/22/19 09:01 Dose: 81 mg Carvedilol (Coreg Tab*) 12.5 mg PO BID [facility] Last Admin: 05/22/19 09:01 Dose: 12.5 mg Furosemide (Lasix Iv*) 80 mg IV DAILY [facility] Last Admin: 05/22/19 09:02 Dose: 80 mg Heparin Sodium (Porcine) (Heparin Vial(*)) 5,000 units SUBCUT Q8HR [facility] Last Admin: 05/22/19 05:37 Dose: 5,000 units Cefazolin Sodium 1 gm/ Sodium (Chloride) 50 mls @ 200 mls/hr IVPB Q8H [facility] Last Admin: 05/22/19 09:01 Dose: 200 mls/hr Nystatin (Nystatin Top Powder*) 1 applic TOPICAL TID [facility] Last Admin: 05/22/19 09:03 Dose: 1 applic Spironolactone (Aldactone Tab*) 25 mg PO DAILY [facility] Last Admin: 05/22/19 09:01 Dose: 25 mg Torsemide (Demadex*) 40 mg PO DAILY [facility] Valsartan (Diovan Tab*) 80 mg PO BID [facility] Objective Vital Signs: Temp Pulse Resp BP Pulse Ox 97.9 F 65 24 132/68 90 05/22/19 08:12 05/22/19 08:12 05/22/19 08:53 05/22/19 08:12 05/22/19 08:12 Oxygen Devices in Use Now: Nasal Cannula Appearance: nad, pleasant Ears/Nose/Mouth/Throat: Clear Oropharnyx, Mucous Membranes Moist Neck: Trachea Midline, - - uncertain jvp Respiratory: Symmetrical Chest Expansion and Respiratory Effort, Clear to Auscultation, - Cardiovascular: RRR, - - distant, no significant murmur appreciated Abdominal: - - obese, soft Extremities: - - 3+ edema, excoriation cellulitis improving Neurological: Alert and Oriented x 3 Laboratory Results: 05/21/19 04:50 05/22/19 06:01 Total Bilirubin 1.30 mg/dL (0.2-1.0) H 05/20/19 12:38 AST TNP 05/20/19 14:25 ALT 30 U/L (7-52) 05/20/19 12:38 Alkaline Phosphatase 121 U/L (34-104) H 05/20/19 12:38 B-Natriuretic Peptide > 1300 pg/mL (<=100) H 05/20/19 12:38 Total Protein 6.1 g/dL (6.4-8.9) L 05/20/19 12:38 Albumin 3.7 g/dL (3.2-5.2) 05/20/19 12:38 Globulin 2.4 g/dL (2-4) 05/20/19 12:38 Albumin/Globulin Ratio 1.5 (1-3) 05/20/19 12:38 Triglycerides 69 mg/dL 05/21/19 06:00 Cholesterol 93 mg/dL 05/21/19 06:00 LDL Cholesterol 48 mg/dL 05/21/19 06:00 HDL Cholesterol 30.8 mg/dL 05/21/19 06:00 TSH 2.09 mcIU/mL (0.34-5.60) 05/21/19 06:00 mg 05/22 2.0 05/20/19 05/20/19 05/21/19 12:38 18:35 01:01 Troponin I 0.23 H* 0.28 H* 0.24 H* 05/21/19 06:00 Troponin I 0.31 H* Diagnostic Imaging: Transthoracic Echocardiogram Study Date: 05/20/2019 Summary: - Left ventricle: The cavity size is normal. Wall thickness is moderately increased. Systolic function is severely reduced. The estimated ejection fraction is 25-30%. Moderate diffuse hypokinesis. - Right ventricle: The cavity size is normal. Systolic function is mildly to moderately reduced. - Left atrium: The atrium is mildly dilated. - Aortic valve: There is mild to moderate regurgitation. CXR 05/20/19 IMPRESSION: Cardiomegaly with no definite evidence of pneumonia. EKG Data: EKG admission: sinus tachycardia 105 bpm with multiple PAC's, PVC, anterolateral TWI, grossly unchanged on repeat Assessment/Plan 1. New onset acute systolic HF - LVEF 25% - No evidence of an acute type 1 MD 2. Hypertension 3. Obesity 4. Probable mild CKD 5. Cellulitis - Continue aspirin 81 mg po daily for now - Continue coreg 12.5 po bid - Increase valsartan from 40 mg to 80 mg po bid (ordered) - Continue spironolactone 25 mg po daily - Continue IV diuresis, trend i/o, weights, bmp. - Continue lasix 80 mg IV QD. Start oral torsemide 40 mg po daily (ordered) in addition to begin overlap and preparation for outpatient regimen - Replace K with 40 mg oral liquid x 2 (ordered) - Continue antibiotics per Primary service Plan on cardiac catheterization to determine if CHF is ischemic related and have intent for revascularization this hospitalization once heart failure and cellulitis stabilized Thank you for allowing me to participate in the cardiovascular care of this patient. Please do not hesitate to contact me with questions or concerns.
[2019-05-22] MEDS: Potassium Chlor TAB* 20 MEQ TAB.ER PO SCH ×2 (13:33→17:28)
[2019-05-22] MEDS ORDERED: Potassium Chlor TAB* 20 MEQ TAB.ER PO ONE (14:00)
--- NOTE | 2019-05-22 15:43 | PN ---
Subjective Date of Service: 05/22/19 Interval History: Patient has no new complaints. He is worried about cardiac surgery. Has been getting OOB to chair for all meals. States breathing is better than admission. Family History: Unchanged from Admission Social History: Unchanged from Admission Past Medical History: Unchanged from Admission Objective Active Medications: Acetaminophen (Tylenol Tab*) 650 mg PO Q6H PRN PRN Reason: MILD PAIN or TEMP > 100.4 Aspirin (Aspirin Ec Tab*) 81 mg PO DAILY [facility] Last Admin: 05/22/19 09:01 Dose: 81 mg Carvedilol (Coreg Tab*) 12.5 mg PO BID [facility] Last Admin: 05/22/19 09:01 Dose: 12.5 mg Furosemide (Lasix Iv*) 80 mg IV DAILY [facility] Last Admin: 05/22/19 09:02 Dose: 80 mg Heparin Sodium (Porcine) (Heparin Vial(*)) 5,000 units SUBCUT Q8HR [facility] Last Admin: 05/22/19 13:33 Dose: 5,000 units Cefazolin Sodium 1 gm/ Sodium (Chloride) 50 mls @ 200 mls/hr IVPB Q8H [facility] Last Admin: 05/22/19 09:01 Dose: 200 mls/hr Nystatin (Nystatin Top Powder*) 1 applic TOPICAL TID [facility] Last Admin: 05/22/19 13:33 Dose: 1 applic Potassium Chloride (Klor Con Er Tab*) 40 meq PO Q4H [facility] Stop: 05/22/19 17:31 Last Admin: 05/22/19 13:33 Dose: 40 meq Spironolactone (Aldactone Tab*) 25 mg PO DAILY [facility] Last Admin: 05/22/19 09:01 Dose: 25 mg Torsemide (Demadex*) 40 mg PO DAILY [facility] Valsartan (Diovan Tab*) 80 mg PO BID [facility] Vital Signs - 8 hr 05/22/19 05/22/19 05/22/19 08:00 08:12 08:53 Temperature 36.6 C Pulse Rate 65 Respiratory 24 32 24 Rate Blood Pressure 132/68 (mmHg) O2 Sat by Pulse 90 Oximetry 05/22/19 11:50 Temperature 36.8 C Pulse Rate 70 Respiratory 28 Rate Blood Pressure 105/59 (mmHg) O2 Sat by Pulse 95 Oximetry Oxygen Devices in Use Now: Nasal Cannula Appearance: obese, alert Ears/Nose/Mouth/Throat: Clear Oropharnyx Neck: NL Appearance and Movements; NL JVP Respiratory: Symmetrical Chest Expansion and Respiratory Effort, Clear to Auscultation Cardiovascular: NL Sounds; No Murmurs; No JVD, RRR, - - 3+ pitting edema bilat LE Skin: - - many healing excoriated lesions on both shins, ankles Neurological: Alert and Oriented x 3 Lines/Tubes/Other Access: Clean, Dry and Intact Peripheral IV Nutrition: Taking PO's Result Diagrams: 05/21/19 04:50 05/22/19 06:01 Microbiology and Other Data: Microbiology 05/20/19 12:38 Aerobic Blood Culture - Preliminary Blood Venous No Growth Day 2 Anaerobic Blood Culture - Preliminary No Growth Day 2 05/20/19 12:39 Aerobic Blood Culture - Preliminary Blood Venous No Growth Day 2 Anaerobic Blood Culture - Preliminary No Growth Day 2 05/21/19 04:50 Urine Culture - Final Urine No Growth (<1,000 CFU/mL) Assess/Plan/Problems-Billing Assessment: Mr Borjas is a 69yo M with no PMH, who has not seen a physician in 15 years ; who presented to ED with months of progressive dyspnea on exertion, orthopnea , PND, edema with 40lbs weight gain, found to have newly diagnosed CHF. - Patient Problems (1) Acute systolic (congestive) heart failure Current Visit: Yes Status: Acute Priority: High Code(s): I50.21 - ACUTE SYSTOLIC (CONGESTIVE) HEART FAILURE SNOMED Code(s): 541297834 Comment: - Cardiology input appreciated - Continue diuresis with Furosemide and add Aldactone. - Monitor I/Os and daily weights. - continue Aspirin, titrated Coreg, Valsartan. - Will need cardiac cath next week (2) Cellulitis Current Visit: Yes Status: Acute Priority: Medium Code(s): L03.90 - CELLULITIS, UNSPECIFIED SNOMED Code(s): 264424798 Comment: - Looks mainly due to chronic stasis - Continued to improved today. - Will switch to PO antbiotics (3) DVT prophylaxis Current Visit: Yes Status: Acute Priority: Low Code(s): Z29.9 - ENCOUNTER FOR PROPHYLACTIC MEASURES, UNSPECIFIED SNOMED Code(s): 124481491 Comment: - SQ heparin. (4) Hypokalemia Current Visit: Yes Status: Acute Priority: Medium Code(s): E87.6 - HYPOKALEMIA SNOMED Code(s): 80107216 Comment: -Has been supplemented today. -Has had VT in last 48 hours -Will recheck in AM Status and Disposition: Inpatient.
[2019-05-22] MEDS: Torsemide TAB* 20 MG PO SCH (16:15)
--- NOTE | 2019-05-22 16:37 | PTEDU ---
Patient Name: NELSON WILL NELSON WILL selected video: Heart Failure to view on 05/22/2019 at 4:35:12 PM from [email or web address]
[2019-05-22] MEDS: Cephalexin CAP* 500 MG PO SCH ×2 (17:28→21:06)
[2019-05-23] MEDS: Heparin VIAL(*) 5000 UNITS/ML VIAL (FIVE THOUSAND) SUBCUT SCH ×3 (05:09→21:17)
[2019-05-23 06:35] LABS: Anion Gap 5 mmol/L (2-11); BUN/Creatinine Ratio 18.5 (8-20); Blood Urea Nitrogen 28 mg/dL (6-24); CO2 Carbon Dioxide 34 mmol/L (22-32); Calcium 8.2 mg/dL (8.6-10.3); Chloride 100 mmol/L (101-111); EGFR African American 55.9 (>60); EGFR Non-African American 46.2 (>60); Glucose 81 mg/dL (70-100); Potassium 4.1 mmol/L (3.5-5.0); Sodium 139 mmol/L (135-145)
[2019-05-23 06:37] LABS: Troponin I 0.17 ng/mL (<0.04)
[2019-05-23] MEDS: Torsemide TAB* 20 MG PO SCH (08:13)
[2019-05-23] MEDS: Furosemide IV* 10 MG/ML VIAL (40 MG) IV SCH (08:13)
[2019-05-23] MEDS: Carvedilol TAB* 6.25 MG PO SCH ×2 (08:13→20:34)
[2019-05-23] MEDS: Spironolactone TAB* 25 MG PO SCH (08:13)
[2019-05-23] MEDS: Aspirin EC TAB* 81 MG TAB.EC PO SCH (08:13)
[2019-05-23] MEDS: Valsartan TAB* 40 MG PO SCH (08:13)
[2019-05-23] MEDS: Cephalexin CAP* 500 MG PO SCH ×4 (08:13→20:34)
[2019-05-23] MEDS: Nystatin TOP POWDER* 15 GM BTL TOPICAL SCH ×3 (08:16→20:33)
[2019-05-23] MEDS ORDERED: Diazepam TAB(*) 5 MG PO PRN (14:37)
[2019-05-23] MEDS ORDERED: diPHENhydraMINE PO* 25 MG PO PRN (14:37)
[2019-05-23 16:59] LABS: ABS Basophils 0.1 10^3/ul (0-0.2); ABS Eosinophils 0.2 10^3/ul (0-0.6); ABS Lymphocytes 0.7 10^3/ul (1.0-4.8); ABS Monocytes 1.3 10^3/ul (0-0.8); ABS Neutrophils 7.1 10^3/ul (1.5-7.7); Eosinophil % 1.7 %; Hematocrit 47 % (42-52); Hemoglobin 15.5 g/dL (14.0-18.0); Lymphocyte % 7.3 %; Mean Corpuscular HGB Conc 33 g/dL (31-36); Mean Corpuscular Hemoglobin 30 pg (27-31); Mean Corpuscular Volume 91 fL (80-94); Nucleated Red Blood Cells % 0.1; Platelet Count 193 10^3/uL (150-450); Red Blood Count 5.16 10^6 /uL (4.18-5.48); Red Cell Distribution Width 17 % (10-15); White Blood Count 9.3 10^3/uL (3.5-10.8)
[2019-05-23 17:36] LABS: BUN/Creatinine Ratio 20.9 (8-20); Calcium 8.2 mg/dL (8.6-10.3); EGFR African American 61.5 (>60); EGFR Non-African American 50.8 (>60); Potassium 3.9 mmol/L (3.5-5.0)
--- NOTE | 2019-05-23 19:13 | PN ---
Subjective Date of Service: 05/23/19 Interval History: Patient has no new complaints. He can walk to bathroom. Legs are less pruritic, less pain. He understands he is having a cardiac cath tomorrow. Family History: Unchanged from Admission Social History: Unchanged from Admission Past Medical History: Unchanged from Admission Objective Active Medications: Acetaminophen (Tylenol Tab*) 650 mg PO Q6H PRN PRN Reason: MILD PAIN or TEMP > 100.4 Aspirin (Aspirin Ec Tab*) 81 mg PO DAILY [facility] Last Admin: 05/23/19 08:13 Dose: 81 mg Carvedilol (Coreg Tab*) 12.5 mg PO BID [facility] Last Admin: 05/23/19 08:13 Dose: 12.5 mg Cephalexin HCl (Keflex Cap*) 500 mg PO QID [facility] Last Admin: 05/23/19 16:17 Dose: 500 mg Diazepam (Valium Tab(*)) 5 mg PO ONCE PRN PRN Reason: scallop binder to Budget Officer Stop: 05/23/19 23:59 Diphenhydramine HCl (Benadryl Po*) 25 mg PO ONCE PRN PRN Reason: scallop binder to Budget Officer Furosemide (Lasix Iv*) 40 mg IV DAILY [facility] Last Admin: 05/23/19 08:13 Dose: 40 mg Heparin Sodium (Porcine) (Heparin Vial(*)) 5,000 units SUBCUT Q8HR [facility] Last Admin: 05/23/19 13:11 Dose: 5,000 units Sodium Chloride (Ns 0.9% 1000 Ml) 1,000 mls @ 75 mls/hr IV .per rate [facility] Nystatin (Nystatin Top Powder*) 1 applic TOPICAL TID [facility] Last Admin: 05/23/19 13:11 Dose: 1 applic Spironolactone (Aldactone Tab*) 25 mg PO DAILY [facility] Last Admin: 05/23/19 08:13 Dose: 25 mg Torsemide (Demadex*) 40 mg PO DAILY [facility] Last Admin: 05/23/19 08:13 Dose: 40 mg Valsartan (Diovan Tab*) 80 mg PO BID [facility] Vital Signs - 8 hr 05/23/19 05/23/19 05/23/19 11:15 12:28 15:12 Temperature 36.2 C 36.8 C Pulse Rate 54 67 Respiratory 21 24 Rate Blood Pressure 103/78 117/77 116/63 (mmHg) O2 Sat by Pulse 91 96 98 Oximetry Oxygen Devices in Use Now: Nasal Cannula Appearance: alert, more talkative Eyes: No Scleral Icterus Ears/Nose/Mouth/Throat: NL Teeth, Lips, Gums, Clear Oropharnyx Neck: NL Appearance and Movements; NL JVP Respiratory: Symmetrical Chest Expansion and Respiratory Effort, Clear to Auscultation Cardiovascular: NL Sounds; No Murmurs; No JVD, RRR, - - 2+ edema bilat LE Abdominal: NL Sounds; No Tenderness; No Distention, - - obese, no masses Lymphatic: No Cervical Adenopathy Skin: - - excoriations on legs bilat Neurological: Alert and Oriented x 3 Lines/Tubes/Other Access: Clean, Dry and Intact Peripheral IV Nutrition: Taking PO's Result Diagrams: 05/23/19 16:49 05/23/19 16:49 Additional Lab and Data: Laboratory Tests 05/23/19 05/23/19 05:57 16:49 Glucose 116 H Troponin I 0.17 H* Microbiology and Other Data: Microbiology 05/21/19 04:50 Urine Urine Culture - Final No Growth (<1,000 CFU/mL) 05/20/19 12:39 Blood Venous Aerobic Blood Culture - Preliminary 05/20/19 12:39 Blood Venous Anaerobic Blood Culture - Preliminary No Growth Day 3 No Growth Day 3 05/20/19 12:38 Blood Venous Aerobic Blood Culture - Preliminary 05/20/19 12:38 Blood Venous Anaerobic Blood Culture - Preliminary No Growth Day 3 No Growth Day 3 Assess/Plan/Problems-Billing Assessment: Mr Borjas is a 69yo M with no PMH, who has not seen a physician in 15 years ; who presented to ED with months of progressive dyspnea on exertion, orthopnea , PND, edema with 40lbs weight gain, found to have newly diagnosed CHF. - Patient Problems (1) Acute systolic (congestive) heart failure Current Visit: Yes Status: Acute Priority: High Code(s): I50.21 - ACUTE SYSTOLIC (CONGESTIVE) HEART FAILURE SNOMED Code(s): 701002313 Comment: - Discussed w/ Dr. Templeton, he will have cath tomorrow r/o ischemic cardiomyopathy - Diuresis is excellent w/ current medications, edema is improved - Monitor I/Os and daily weights. - continue Aspirin, titrated Coreg, Valsartan (2) Cellulitis Current Visit: Yes Status: Acute Priority: Medium Code(s): L03.90 - CELLULITIS, UNSPECIFIED SNOMED Code(s): 939643717 Comment: - Looks mainly due to chronic stasis - Continued to improved today, doing well with PO antbiotics (3) DVT prophylaxis Current Visit: Yes Status: Acute Priority: Low Code(s): Z29.9 - ENCOUNTER FOR PROPHYLACTIC MEASURES, UNSPECIFIED SNOMED Code(s): 582022122 Comment: - SQ heparin. (4) Hypokalemia Current Visit: Yes Status: Acute Priority: Medium Code(s): E87.6 - HYPOKALEMIA SNOMED Code(s): 04843922 Comment: -Has been supplemented. -Recheck in AM Status and Disposition: Inpatient.
[2019-05-23] MEDS: Valsartan TAB* 80 MG PO SCH (20:33)
[2019-05-24] MEDS ORDERED: NS 0.9% 1000 ML** 1,000 ML IV SCH (02:00)
[2019-05-24] MEDS: Heparin VIAL(*) 5000 UNITS/ML VIAL (FIVE THOUSAND) SUBCUT SCH ×3 (06:09→21:50)
[2019-05-24 06:57] LABS: Albumin 2.9 g/dL (3.2-5.2); Potassium 3.9 mmol/L (3.5-5.0); Total Bilirubin 0.9 mg/dL (0.2-1.0)
[2019-05-24 07:03] LABS: Albumin/Globulin Ratio 1.3 (1-3); BUN/Creatinine Ratio 24.1 (8-20); EGFR African American 75.8 (>60); EGFR Non-African American 62.6 (>60); Globulin 2.2 g/dL (2-4); Total Protein 5.1 g/dL (6.4-8.9)
--- NOTE | 2019-05-24 07:43 | PN ---
Subjective Date of Service: 05/24/19 Interval History: HOSPITALIST PROGRESS NOTE Patient seen and examined at bedside. Care reviewed and d/w Allen Edge RN. He feels better everyday. Very grateful about care. Still has dyspnea on exertion, but able to move more. Denies chest pain or palpitations. Family History: Unchanged from Admission Social History: Unchanged from Admission Past Medical History: Unchanged from Admission Objective Active Medications: Acetaminophen (Tylenol Tab*) 650 mg PO Q6H PRN PRN Reason: MILD PAIN or TEMP > 100.4 Aspirin (Aspirin Ec Tab*) 81 mg PO DAILY [facility] Last Admin: 05/23/19 08:13 Dose: 81 mg Carvedilol (Coreg Tab*) 12.5 mg PO BID [facility] Last Admin: 05/23/19 20:34 Dose: 12.5 mg Cephalexin HCl (Keflex Cap*) 500 mg PO QID [facility] Last Admin: 05/23/19 20:34 Dose: 500 mg Diphenhydramine HCl (Benadryl Po*) 25 mg PO ONCE PRN PRN Reason: call out clerk to Change Of Address Clerk Furosemide (Lasix Iv*) 40 mg IV DAILY [facility] Last Admin: 05/23/19 08:13 Dose: 40 mg Heparin Sodium (Porcine) (Heparin Vial(*)) 5,000 units SUBCUT Q8HR [facility] Last Admin: 05/24/19 06:09 Dose: Not Given Sodium Chloride (Ns 0.9% 1000 Ml) 1,000 mls @ 75 mls/hr IV .per rate [facility] Last Admin: 05/24/19 02:23 Dose: 75 mls/hr Nystatin (Nystatin Top Powder*) 1 applic TOPICAL TID [facility] Last Admin: 05/23/19 20:33 Dose: 1 applic Spironolactone (Aldactone Tab*) 25 mg PO DAILY [facility] Last Admin: 05/23/19 08:13 Dose: 25 mg Torsemide (Demadex*) 40 mg PO DAILY [facility] Last Admin: 05/23/19 08:13 Dose: 40 mg Valsartan (Diovan Tab*) 80 mg PO BID [facility] Last Admin: 05/23/19 20:33 Dose: 80 mg Vital Signs - 8 hr 05/24/19 05/24/19 02:49 07:41 Temperature 97.8 F Pulse Rate 73 Respiratory 24 20 Rate Blood Pressure 118/92 (mmHg) O2 Sat by Pulse 95 Oximetry Oxygen Devices in Use Now: Nasal Cannula - 1 liter Appearance: Pleasant elderly gentleman sitting up in NAD. Eyes: No Scleral Icterus Ears/Nose/Mouth/Throat: Mucous Membranes Moist Neck: Trachea Midline Respiratory: Symmetrical Chest Expansion and Respiratory Effort, - - BS+ bilaterally with bibasilar crackles Cardiovascular: - - Normal S1 and S2, irregular Abdominal: NL Sounds; No Tenderness; No Distention Extremities: - - Bilateral LE pitting edema Skin: - - Abdome rash is much improved, as well as bilateral LE cellulitis Neurological: Alert and Oriented x 3, NL Muscle Strength and Tone Result Diagrams: 05/23/19 16:49 05/24/19 05:15 Assess/Plan/Problems-Billing Assessment: Mr Borjas is a 69yo M with no PMH, who has not seen a physician in 15 years ; who presented to ED with months of progressive dyspnea on exertion, orthopnea , PND, edema with 40lbs weight gain, found to have newly diagnosed CHF. - Patient Problems (1) Acute hypoxemic respiratory failure Comment: - Secondary to CHF exacerbation. - Continue supplemental O2. (2) Acute systolic (congestive) heart failure Comment: - Cath showed no obstructive CAD. Impression is CHF is likely secondary to chronically uncontrolled HTN. - Diuresis is excellent w/ current medications, edema is improved. - Monitor I/Os and daily weights. Weight down to 237lbs today. - continue Aspirin, Coreg, Valsartan, Torsemide, Aldactone (3) Cellulitis Comment: - Looks mainly due to chronic stasis secondary to pitting edema. - Continues to improve, doing well with PO antbiotics (4) LORAINE (acute kidney injury) Comment: - Improving. - Metabolic acidosis and AG resolved with improved perfusion. (5) V-tach Comment: - Continue Coreg. (6) Multifocal atrial tachycardia Comment: - Continue Coreg. (7) DVT prophylaxis Comment: - SQ heparin. (8) Full code status Status and Disposition: Inpatient. PT re-evaluation.
[2019-05-24] MEDS ORDERED: Dextrose 50% Syringe 50 ML* 25 GM/50 ML SYRINGE IV PUSH ONE (07:54)
[2019-05-24] MEDS: Aspirin EC TAB* 81 MG TAB.EC PO SCH (07:59)
[2019-05-24] MEDS ORDERED: nitroGLYCERIN DRIP* 25,000 MCG/250 ML BTL ONE (08:32)
[2019-05-24] MEDS ORDERED: Heparin(*) 1000 UNIT/ML 10 ML VIAL CATH LAB IV ONE (08:32)
[2019-05-24] MEDS ORDERED: VERAPAMIL 2.5 MG/ML 2 ML VIAL ** 5 mg/2 ml ONE (08:32)
[2019-05-24] MEDS ORDERED: Midazolam* 1 MG/ML 5 ML VIAL (5 MG) ONE (08:32)
[2019-05-24] MEDS ORDERED: fentaNYL* 50 MCG/ML 2 ML VIAL (100 MCG VIAL) ONE (08:32)
[2019-05-24] MEDS ORDERED: Heparin 2 UNITS/ML IVPREMIX* 2,000 ML IV ONE (08:32)
[2019-05-24] MEDS ORDERED: Lidocaine 1% INJ* 10 MG/ML 30 ML SDV ONE (08:32)
[2019-05-24] MEDS ORDERED: Iodixanol 320 (CONTRAST) 100 ML SDV ONE (08:33)
--- NOTE | 2019-05-24 09:41 | CATH ---
*[facility]* [address] [address] Main: [phone] [email or web address] Cardiac Catheterization Patient: Tone Borjas : 1950 Study Date: 05/24/2019 Age: 69 Gender: M HR: Height: / BSA: Weight: / BMI: Bond Trader: Lawson Templeton MD Ordering Physician: Lawson Templeton MD Referring Physician: Lawson Templeton MD, Summary: No significant CAD Recommendations: Continue medical therapy of cardiomyopathy. Study data: Location: Catheterization laboratory. Consent: The risks, benefits, and alternatives to the procedure were explained to the patient and/or their healthcare inside account representative and written informed consent was obtained. All available pre-procedure labs were reviewed. Procedure: 1. Initial setup. The patient was brought to the laboratory. Surface ECG leads, blood pressure measurements, and pulse oximetric signals were monitored. A baseline seven lead ECG was recorded. A time out was observed per protocol. 2. Skin preparation. The planned puncture sites were prepped and draped in the usual sterile manner. 3. Local anesthesia. 1% lidocaine was administered. Study completion: Minimal estimated blood loss. All catheters inserted during the procedure were removed. There were no apparent complications. Discharge: The patient tolerated the procedure well and was discharged from the lab in stable condition. Findings Coronary arteries: The coronary circulation is co-dominant. Left main: Normal, 0% stenosis. LAD: Normal, 0% stenosis. Left circumflex: Normal, 0% stenosis. Right coronary: Minor luminal irregularities. The proximal vessel is moderately ectatic. Prepared and electronically signed by Lawson Templeton MD 05/24/2019 09:41
[2019-05-24] MEDS: Spironolactone TAB* 25 MG PO SCH (10:30)
[2019-05-24] MEDS: Furosemide IV* 10 MG/ML VIAL (40 MG) IV SCH (10:30)
[2019-05-24] MEDS: Valsartan TAB* 80 MG PO SCH ×2 (10:30→21:50)
[2019-05-24] MEDS: Cephalexin CAP* 500 MG PO SCH ×4 (10:30→21:50)
[2019-05-24] MEDS: Nystatin TOP POWDER* 15 GM BTL TOPICAL SCH ×3 (10:30→21:50)
[2019-05-24] MEDS: Carvedilol TAB* 6.25 MG PO SCH ×2 (10:31→21:54)
[2019-05-24] MEDS: Torsemide TAB* 20 MG PO SCH (10:31)
[2019-05-24] MEDS: Acetaminophen TAB* 325 MG PO PRN (21:55)
[2019-05-25] MEDS: Heparin VIAL(*) 5000 UNITS/ML VIAL (FIVE THOUSAND) SUBCUT SCH ×3 (05:15→21:27)
[2019-05-25 07:14] LABS: BUN/Creatinine Ratio 23.1 (8-20); Calcium 8.3 mg/dL (8.6-10.3); EGFR African American 72.2 (>60); EGFR Non-African American 59.6 (>60); Magnesium 2.1 mg/dL (1.9-2.7); Potassium 3.6 mmol/L (3.5-5.0)
--- NOTE | 2019-05-25 08:14 | PN ---
Subjective Date of Service: 05/25/19 Interval History: HOSPITALIST PROGRESS NOTE Patient seen and examined at bedside. Care reviewed and d/w Allen Edge RN. He feels improved everyday. States his breathing is easier, denies CP, palpitations. Tolerating diet well. Family History: Unchanged from Admission Social History: Unchanged from Admission Past Medical History: Unchanged from Admission Objective Active Medications: Acetaminophen (Tylenol Tab*) 650 mg PO Q6H PRN PRN Reason: MILD PAIN or TEMP > 100.4 Last Admin: 05/24/19 21:55 Dose: 650 mg Aspirin (Aspirin Ec Tab*) 81 mg PO DAILY [facility] Last Admin: 05/24/19 07:59 Dose: 81 mg Carvedilol (Coreg Tab*) 12.5 mg PO BID [facility] Last Admin: 05/24/19 21:54 Dose: 12.5 mg Cephalexin HCl (Keflex Cap*) 500 mg PO QID [facility] Last Admin: 05/24/19 21:50 Dose: 500 mg Furosemide (Lasix Iv*) 40 mg IV DAILY [facility] Last Admin: 05/24/19 10:30 Dose: 40 mg Heparin Sodium (Porcine) (Heparin Vial(*)) 5,000 units SUBCUT Q8HR [facility] Last Admin: 05/25/19 05:15 Dose: 5,000 units Nystatin (Nystatin Top Powder*) 1 applic TOPICAL TID [facility] Last Admin: 05/24/19 21:50 Dose: 1 applic Spironolactone (Aldactone Tab*) 25 mg PO DAILY [facility] Last Admin: 05/24/19 10:30 Dose: 25 mg Torsemide (Demadex*) 40 mg PO DAILY [facility] Last Admin: 05/24/19 10:31 Dose: 40 mg Valsartan (Diovan Tab*) 80 mg PO BID [facility] Last Admin: 05/24/19 21:50 Dose: 80 mg Vital Signs - 8 hr 05/25/19 05/25/19 03:15 07:15 Temperature 97.6 F 97.9 F Pulse Rate 70 73 Respiratory 18 19 Rate Blood Pressure 145/82 127/84 (mmHg) O2 Sat by Pulse 98 96 Oximetry Oxygen Devices in Use Now: Nasal Cannula - 2 liters Appearance: Pleasant obese gentleman sitting up in bed in NAD. Eyes: No Scleral Icterus Ears/Nose/Mouth/Throat: Mucous Membranes Moist Neck: Trachea Midline Respiratory: Symmetrical Chest Expansion and Respiratory Effort, - - BS+ bilaterally diminished in bases Cardiovascular: - - Normal S1 and S2, irregular Abdominal: NL Sounds; No Tenderness; No Distention Extremities: - - Bilateral LE pitting edema; rash is much improved Neurological: Alert and Oriented x 3, NL Muscle Strength and Tone Result Diagrams: 05/23/19 16:49 05/25/19 06:32 Assess/Plan/Problems-Billing Assessment: Mr Borjas is a 69yo M with no PMH, who has not seen a physician in 15 years ; who presented to ED with months of progressive dyspnea on exertion, orthopnea , PND, edema with 40lbs weight gain, found to have newly diagnosed CHF. - Patient Problems (1) Acute hypoxemic respiratory failure Comment: - Secondary to CHF exacerbation. - Continue supplemental O2. (2) Acute systolic (congestive) heart failure Comment: - Cath showed no obstructive CAD. Impression is CHF is likely secondary to chronically uncontrolled HTN. - Diuresis is excellent w/ current medications, edema is improved. - Monitor I/Os and daily weights. Weight down to 237lbs today. - continue Aspirin, Coreg, Valsartan, Torsemide/Furosemide overlap, and Aldactone (3) Cellulitis Comment: - Looks mainly due to chronic stasis secondary to pitting edema. - Continues to improve, doing well with PO antbiotics (4) LORAINE (acute kidney injury) Comment: - Improving. - Metabolic acidosis and AG resolved with improved perfusion. (5) V-tach Comment: - Continue Coreg. (6) Multifocal atrial tachycardia Comment: - Continue Coreg. (7) DVT prophylaxis Comment: - SQ heparin. (8) Full code status Status and Disposition: Inpatient. Did well with PT. Anticipate d/c home with VNS in 1-2 days.
[2019-05-25] MEDS: Nystatin TOP POWDER* 15 GM BTL TOPICAL SCH ×3 (08:15→21:27)
[2019-05-25] MEDS: Valsartan TAB* 80 MG PO SCH ×2 (08:15→19:56)
[2019-05-25] MEDS: Cephalexin CAP* 500 MG PO SCH ×4 (08:15→19:52)
[2019-05-25] MEDS: Carvedilol TAB* 6.25 MG PO SCH ×2 (08:15→19:55)
[2019-05-25] MEDS: Aspirin EC TAB* 81 MG TAB.EC PO SCH (08:15)
[2019-05-25] MEDS: Torsemide TAB* 20 MG PO SCH (08:15)
[2019-05-25] MEDS: Spironolactone TAB* 25 MG PO SCH (08:15)
[2019-05-25] MEDS: Furosemide IV* 10 MG/ML VIAL (40 MG) IV SCH (08:15)
[2019-05-25] MEDS: Acetaminophen TAB* 325 MG PO PRN (08:20)
--- NOTE | 2019-05-25 17:14 | PN ---
Subjective Date of Service: 05/25/19 - CC: 40 lb weight gain, leg edema Interval History: Lying flat, no c/o. Legs better, less painful. No SOB. Medications Active Medications: Acetaminophen (Tylenol Tab*) 650 mg PO Q6H PRN PRN Reason: MILD PAIN or TEMP > 100.4 Last Admin: 05/25/19 08:20 Dose: 650 mg Aspirin (Aspirin Ec Tab*) 81 mg PO DAILY [facility] Last Admin: 05/25/19 08:15 Dose: 81 mg Carvedilol (Coreg Tab*) 12.5 mg PO BID [facility] Last Admin: 05/25/19 08:15 Dose: 12.5 mg Cephalexin HCl (Keflex Cap*) 500 mg PO QID [facility] Last Admin: 05/25/19 15:52 Dose: 500 mg Furosemide (Lasix Iv*) 40 mg IV DAILY [facility] Last Admin: 05/25/19 08:15 Dose: 40 mg Heparin Sodium (Porcine) (Heparin Vial(*)) 5,000 units SUBCUT Q8HR [facility] Last Admin: 05/25/19 12:49 Dose: 5,000 units Nystatin (Nystatin Top Powder*) 1 applic TOPICAL TID [facility] Last Admin: 05/25/19 12:50 Dose: 1 applic Spironolactone (Aldactone Tab*) 25 mg PO DAILY [facility] Last Admin: 05/25/19 08:15 Dose: 25 mg Torsemide (Demadex*) 40 mg PO DAILY [facility] Last Admin: 05/25/19 08:15 Dose: 40 mg Valsartan (Diovan Tab*) 80 mg PO BID [facility] Last Admin: 05/25/19 08:15 Dose: 80 mg Objective Vital Signs: Temp Pulse Resp BP Pulse Ox 97.8 F 72 20 111/69 99 05/25/19 15:15 05/25/19 15:15 05/25/19 15:15 05/25/19 15:15 05/25/19 15:15 Appearance: lying in bed flat, comfortable. Morbid obeseity. Eyes: No Scleral Icterus, PERRLA Ears/Nose/Mouth/Throat: Clear Oropharnyx, Mucous Membranes Moist Neck: Trachea Midline, - - thick neck, no increase in JVP appreciated. Respiratory: Symmetrical Chest Expansion and Respiratory Effort, Clear to Auscultation, - Cardiovascular: RRR, - - distant, no murmurs Abdominal: - - obese, soft, normal BS. Extremities: - - 3+ edema, excoriation cellulitis improving Skin: - - legs show scratches, mild errythema RLE Neurological: Alert and Oriented x 3 Laboratory Results: 05/23/19 16:49 05/25/19 06:32 Total Bilirubin 0.90 mg/dL (0.2-1.0) 05/24/19 05:15 AST 30 U/L (13-39) 05/24/19 05:15 ALT 21 U/L (7-52) 05/24/19 05:15 Alkaline Phosphatase 95 U/L (34-104) 05/24/19 05:15 B-Natriuretic Peptide > 1300 pg/mL (<=100) H 05/20/19 12:38 Total Protein 5.1 g/dL (6.4-8.9) L 05/24/19 05:15 Albumin 2.9 g/dL (3.2-5.2) L 05/24/19 05:15 Globulin 2.2 g/dL (2-4) 05/24/19 05:15 Albumin/Globulin Ratio 1.3 (1-3) 05/24/19 05:15 Triglycerides 69 mg/dL 05/21/19 06:00 Cholesterol 93 mg/dL 05/21/19 06:00 LDL Cholesterol 48 mg/dL 05/21/19 06:00 HDL Cholesterol 30.8 mg/dL 05/21/19 06:00 TSH 2.09 mcIU/mL (0.34-5.60) 05/21/19 06:00 05/20/19 05/20/19 05/21/19 12:38 18:35 01:01 Troponin I 0.23 H* 0.28 H* 0.24 H* 05/21/19 05/23/19 06:00 05:57 Troponin I 0.31 H* 0.17 H* Diagnostic Imaging: Transthoracic Echocardiogram Study Date: 05/20/2019 Summary: - Left ventricle: The cavity size is normal. Wall thickness is moderately increased. Systolic function is severely reduced. The estimated ejection fraction is 25-30%. Moderate diffuse hypokinesis. - Right ventricle: The cavity size is normal. Systolic function is mildly to moderately reduced. - Left atrium: The atrium is mildly dilated. - Aortic valve: There is mild to moderate regurgitation. CXR 05/20/19 IMPRESSION: Cardiomegaly with no definite evidence of pneumonia. EKG Data: Monitor: NSR, PAC's. Assessment/Plan 69 yo male not previously followed by MD's who presented with CHF, 40 lb weight gain, LE edema and cellulitis. NICM: - Continue aspirin 81 mg po daily for now - Continue coreg 12.5 po bid - On valsartan 80 mg po bid (ordered) - Continue spironolactone 25 mg po daily - Appears to be on both IV lasix and PO torsemide - Continue antibiotics per Primary service Responding to MM I would switch to PO torsemide only. Cardiology will see PRN. FU with Dr Maier 1-3 weeks post discharge. Needs CHF education/diet recommendations on discharge as well.
[2019-05-26 05:35] LABS: BUN/Creatinine Ratio 25.2 (8-20); Calcium 8.2 mg/dL (8.6-10.3); EGFR African American 79.7 (>60); EGFR Non-African American 65.9 (>60); Magnesium 2.2 mg/dL (1.9-2.7); Potassium 3.6 mmol/L (3.5-5.0)
[2019-05-26] MEDS: Heparin VIAL(*) 5000 UNITS/ML VIAL (FIVE THOUSAND) SUBCUT SCH ×2 (06:13→13:38)
[2019-05-26] MEDS: Spironolactone TAB* 25 MG PO SCH (08:00)
[2019-05-26] MEDS: Carvedilol TAB* 6.25 MG PO SCH ×2 (08:00→21:12)
[2019-05-26] MEDS: Aspirin EC TAB* 81 MG TAB.EC PO SCH (08:00)
[2019-05-26] MEDS: Cephalexin CAP* 500 MG PO SCH ×4 (08:00→21:13)
[2019-05-26] MEDS: Torsemide TAB* 20 MG PO SCH (08:00)
[2019-05-26] MEDS: Furosemide IV* 10 MG/ML VIAL (40 MG) IV SCH (08:01)
[2019-05-26] MEDS: Valsartan TAB* 80 MG PO SCH ×2 (08:01→21:13)
[2019-05-26] MEDS: Nystatin TOP POWDER* 15 GM BTL TOPICAL SCH ×3 (08:02→21:15)
[2019-05-26] MEDS: Potassium Chlor TAB* 10 MEQ TAB.ER PO SCH (09:55)
[2019-05-26] MEDS ORDERED: Lidocaine 2% JELLY* 6 ML JELLY TOPICAL ONE (15:23)
[2019-05-26] MEDS: Acetaminophen TAB* 325 MG PO PRN (16:59)
[2019-05-26] MEDS ORDERED: cefTRIAXone(*) 2 GM in NS 0.9% 100 ML* 100 ML IVPB ONE (17:09)
--- NOTE | 2019-05-26 17:22 | PN ---
Subjective Date of Service: 05/26/19 Interval History: Patient stated this AM that breathing was better, swelling gone. Legs are less pruritic, painful. Later in morning had gross hematuria, and afternoon could not void at all. Bladder scan 700, nurse tried to replace velasquez removed yesterday. Family History: Unchanged from Admission Social History: Unchanged from Admission Past Medical History: Unchanged from Admission Objective Active Medications: Acetaminophen (Tylenol Tab*) 650 mg PO Q6H PRN PRN Reason: MILD PAIN or TEMP > 100.4 Last Admin: 05/26/19 16:59 Dose: 650 mg Aspirin (Aspirin Ec Tab*) 81 mg PO DAILY [facility] Last Admin: 05/26/19 08:00 Dose: 81 mg Carvedilol (Coreg Tab*) 12.5 mg PO BID [facility] Last Admin: 05/26/19 08:00 Dose: 12.5 mg Cephalexin HCl (Keflex Cap*) 500 mg PO QID [facility] Last Admin: 05/26/19 16:57 Dose: 500 mg Ceftriaxone Sodium 2 gm/ (Sodium Chloride) 100 mls @ 200 mls/hr IVPB ED ONCE ONE Stop: 05/26/19 17:38 Nystatin (Nystatin Top Powder*) 1 applic TOPICAL TID [facility] Last Admin: 05/26/19 13:39 Dose: 1 applic Potassium Chloride (Klor Con Er Tab*) 10 meq PO DAILY [facility] Last Admin: 05/26/19 09:55 Dose: 10 meq Spironolactone (Aldactone Tab*) 25 mg PO DAILY [facility] Last Admin: 05/26/19 08:00 Dose: 25 mg Tamsulosin HCl (Flomax Cap*) 0.4 mg PO BEDTIME [facility] Torsemide (Demadex*) 40 mg PO DAILY [facility] Last Admin: 05/26/19 08:00 Dose: 40 mg Valsartan (Diovan Tab*) 80 mg PO BID [facility] Last Admin: 05/26/19 08:01 Dose: 80 mg Vital Signs - 8 hr 05/26/19 05/26/19 05/26/19 11:00 11:15 15:15 Temperature 36.3 C 36.7 C Pulse Rate 70 86 Respiratory 24 18 Rate Blood Pressure 91/64 141/68 (mmHg) O2 Sat by Pulse 93 96 92 Oximetry Oxygen Devices in Use Now: Nasal Cannula Appearance: alert, no distress Eyes: No Scleral Icterus Ears/Nose/Mouth/Throat: NL Teeth, Lips, Gums Neck: NL Appearance and Movements; NL JVP Respiratory: Clear to Auscultation Cardiovascular: NL Sounds; No Murmurs; No JVD, RRR Abdominal: NL Sounds; No Tenderness; No Distention, No Hepatosplenomegaly, - - obese, non-tender, +BS Skin: - - healing excoriations on legs, 2x2 cm ulcer w/ healing/eschar dorsum RT foot Neurological: Alert and Oriented x 3 Lines/Tubes/Other Access: Clean, Dry and Intact Peripheral IV Nutrition: Taking PO's Result Diagrams: 05/23/19 16:49 05/26/19 04:34 Microbiology and Other Data: Microbiology 05/21/19 04:50 Urine Urine Culture - Final No Growth (<1,000 CFU/mL) 05/20/19 12:39 Blood Venous Aerobic Blood Culture - Final 05/20/19 12:39 Blood Venous Anaerobic Blood Culture - Final No Growth Day 5 No Growth Day 5 05/20/19 12:38 Blood Venous Aerobic Blood Culture - Final 05/20/19 12:38 Blood Venous Anaerobic Blood Culture - Final No Growth Day 5 No Growth Day 5 Assess/Plan/Problems-Billing Assessment: Mr Borjas is a 69yo M with no PMH, who has not seen a physician in 15 years ; who presented to ED with months of progressive dyspnea on exertion, orthopnea , PND, edema with 40lbs weight gain, found to have newly diagnosed CHF. - Patient Problems (1) Acute systolic (congestive) heart failure Current Visit: Yes Status: Acute Priority: High Code(s): I50.21 - ACUTE SYSTOLIC (CONGESTIVE) HEART FAILURE SNOMED Code(s): 540220129 Comment: - Cath showed no obstructive CAD. Impression is CHF is likely secondary to chronically uncontrolled HTN. - Diuresis is excellent w/ current medications, edema is improved. - Stopped furosemide, continue torsemide - continue Aspirin, Coreg, Valsartan, and Aldactone (2) Cellulitis Current Visit: Yes Status: Acute Priority: Medium Code(s): L03.90 - CELLULITIS, UNSPECIFIED SNOMED Code(s): 833184553 Comment: - Looks mainly due to chronic stasis secondary to pitting edema. - Continues to improve, doing well with PO antbiotics (3) DVT prophylaxis Current Visit: Yes Status: Acute Priority: Low Code(s): Z29.9 - ENCOUNTER FOR PROPHYLACTIC MEASURES, UNSPECIFIED SNOMED Code(s): 707053386 Comment: - SQ heparin stopped due to hematuria (4) Hypokalemia Current Visit: Yes Status: Acute Priority: Medium Code(s): E87.6 - HYPOKALEMIA SNOMED Code(s): 00387243 Comment: -resolved (5) Urinary retention Current Visit: Yes Status: Acute Priority: High Code(s): R33.9 - RETENTION OF URINE, UNSPECIFIED SNOMED Code(s): 821172234 Comment: -Spoke with Dr. Brower, he saw patient, will take to OR tomorrow for cystoscopy/velasquez -started on Flomax for presumed BPH -Patient's CHF is compensated, cardiac cath normal, stable for operating room tomorrow. Status and Disposition: Inpatient.
[2019-05-26] MEDS ORDERED: Naloxone* 0.4 MG/ML 1 ML VIAL ONE (17:49)
[2019-05-26] MEDS ORDERED: fentaNYL* 50 MCG/ML 2 ML VIAL (100 MCG VIAL) ONE (17:49)
[2019-05-26 20:26] LABS: Urine Appearance Cloudy; Urine Bacteria Absent (Absent); Urine Bilirubin Negative (Negative); Urine Blood 3+ (Negative); Urine Color Yellow; Urine Glucose Negative (Negative); Urine Ketones Negative (Negative); Urine Nitrite Negative (Negative); Urine Protein Negative (Negative); Urine Red Blood Cell 3+(>10/hpf) (Absent); Urine Specific Gravity 1.011 (1.010-1.030); Urine Urobilinogen Negative (Negative); Urine White Blood Cell 1+(6-10/hpf) (Absent)
[2019-05-26] MEDS: Lidocaine 4% GEL* 10 GM TUBE TOPICAL PRN (21:13)
[2019-05-26] MEDS: Tamsulosin CAP* 0.4 MG PO SCH (21:13)
[2019-05-27] MEDS: Lidocaine 4% GEL* 10 GM TUBE TOPICAL PRN (03:19)
[2019-05-27] MEDS: Acetaminophen TAB* 325 MG PO PRN (03:19)
[2019-05-27] MEDS: Carvedilol TAB* 6.25 MG PO SCH ×2 (08:58→20:18)
[2019-05-27] MEDS: Cephalexin CAP* 500 MG PO SCH ×4 (08:58→20:18)
[2019-05-27] MEDS ORDERED: Lidocaine 2% JELLY* 20 ML (for OR use) ONE (09:15)
--- NOTE | 2019-05-27 09:22 | PN ---
Progress Note - Progress Note Date of Service: 05/27/19 Note: Brief Pre-op note Patient had suprapubic placed last night. Plan is to go to OR today, for cystoscopy, velasquez placement. Had pain in penis overnight. Selected Entries 05/27/19 07:14 Temperature 36.1 C Pulse Rate 78 Respiratory 20 Rate Blood Pressure 123/73 (mmHg) O2 Sat by Pulse 94 Oximetry Vitals stable Lungs: clear Heart; RRR A/P: CHF, non-ischemic, likely due to untreated hypertension, now stabilized. Urinary retention: patient is low risk of complications of planned surgery, advise taking patient to the OR this AM.
[2019-05-27] MEDS ORDERED: Midazolam* 1 MG/ML 2 ML VIAL (2 MG) ONE (09:41)
[2019-05-27] MEDS ORDERED: Naloxone* 0.4 MG/ML 1 ML VIAL IV PRN (09:53)
[2019-05-27] MEDS ORDERED: fentaNYL* 50 MCG/ML 2 ML VIAL (100 MCG VIAL) IV PRN (09:53)
[2019-05-27] MEDS ORDERED: Furosemide IV* 10 MG/ML 2 ML VIAL (20 MG) ONE (10:20)
[2019-05-27] MEDS: Finasteride TAB* 5 MG PO SCH (12:43)
[2019-05-27] MEDS: Torsemide TAB* 20 MG PO SCH (12:43)
[2019-05-27] MEDS: Spironolactone TAB* 25 MG PO SCH (12:43)
[2019-05-27] MEDS: Aspirin EC TAB* 81 MG TAB.EC PO SCH (12:44)
[2019-05-27] MEDS: Potassium Chlor TAB* 10 MEQ TAB.ER PO SCH (12:44)
[2019-05-27] MEDS: Valsartan TAB* 80 MG PO SCH ×2 (12:44→20:18)
[2019-05-27] MEDS: Nystatin TOP POWDER* 15 GM BTL TOPICAL SCH ×3 (12:45→20:19)
--- NOTE | 2019-05-27 15:30 | PN ---
Subjective Date of Service: 05/27/19 Interval History: Patient has no new complaints. Events of last 24 hrs discussed. He is happy to be voiding. Family History: Unchanged from Admission Social History: Unchanged from Admission Past Medical History: Unchanged from Admission Objective Active Medications: Acetaminophen (Tylenol Tab*) 650 mg PO Q6H PRN PRN Reason: MILD PAIN or TEMP > 100.4 Last Admin: 05/27/19 03:19 Dose: 650 mg Aspirin (Aspirin Ec Tab*) 81 mg PO DAILY [facility] Last Admin: 05/27/19 12:44 Dose: 81 mg Carvedilol (Coreg Tab*) 12.5 mg PO BID [facility] Last Admin: 05/27/19 08:58 Dose: 12.5 mg Cephalexin HCl (Keflex Cap*) 500 mg PO QID [facility] Last Admin: 05/27/19 12:44 Dose: 500 mg Finasteride (Proscar Tab*) 5 mg PO DAILY [facility] Last Admin: 05/27/19 12:43 Dose: 5 mg Lidocaine (Topicaine 4% Gel*) 1 applic TOPICAL Q4H PRN PRN Reason: Penile discomfort Last Admin: 05/27/19 03:19 Dose: 1 applic Nystatin (Nystatin Top Powder*) 1 applic TOPICAL TID [facility] Last Admin: 05/27/19 13:47 Dose: Not Given Potassium Chloride (Klor Con Er Tab*) 10 meq PO DAILY [facility] Last Admin: 05/27/19 12:44 Dose: 10 meq Spironolactone (Aldactone Tab*) 25 mg PO DAILY [facility] Last Admin: 05/27/19 12:43 Dose: 25 mg Tamsulosin HCl (Flomax Cap*) 0.4 mg PO BEDTIME [facility] Last Admin: 05/26/19 21:13 Dose: 0.4 mg Torsemide (Demadex*) 40 mg PO DAILY [facility] Last Admin: 05/27/19 12:43 Dose: 40 mg Valsartan (Diovan Tab*) 80 mg PO BID [facility] Last Admin: 05/27/19 12:44 Dose: 80 mg Vital Signs - 8 hr 05/27/19 05/27/19 05/27/19 08:00 10:15 10:22 Temperature Pulse Rate 69 70 Respiratory 24 18 Rate Blood Pressure 143/97 129/92 (mmHg) O2 Sat by Pulse 93 93 Oximetry 05/27/19 05/27/1919 10:25 10:30 10:35 Temperature Pulse Rate 69 70 68 Respiratory Rate Blood Pressure 133/85 146/98 129/94 (mmHg) O2 Sat by Pulse 93 94 96 Oximetry 05/27/19 05/27/19 05/27/19 10:40 10:45 10:50 Temperature Pulse Rate 69 63 69 Respiratory Rate Blood Pressure 140/98 139/96 132/95 (mmHg) O2 Sat by Pulse 96 96 97 Oximetry 05/27/19 05/27/19 05/27/19 10:55 11:00 11:05 Temperature Pulse Rate 66 64 68 Respiratory Rate Blood Pressure 135/86 138/93 148/92 (mmHg) O2 Sat by Pulse 97 93 91 Oximetry 05/27/19 05/27/19 11:10 14:54 Temperature 36.0 C Pulse Rate 67 61 Respiratory 20 Rate Blood Pressure 131/91 124/86 (mmHg) O2 Sat by Pulse 92 95 Oximetry Oxygen Devices in Use Now: None Appearance: alert, no distress Ears/Nose/Mouth/Throat: NL Teeth, Lips, Gums Neck: NL Appearance and Movements; NL JVP Respiratory: Symmetrical Chest Expansion and Respiratory Effort, Clear to Auscultation Cardiovascular: NL Sounds; No Murmurs; No JVD Abdominal: NL Sounds; No Tenderness; No Distention Lines/Tubes/Other Access: Clean, Dry and Intact Peripheral IV Nutrition: Taking PO's Result Diagrams: 05/23/19 16:49 05/26/19 04:34 Assess/Plan/Problems-Billing Assessment: Mr Borjas is a 69yo M with no PMH, who has not seen a physician in 15 years ; who presented to ED with months of progressive dyspnea on exertion, orthopnea , PND, edema with 40lbs weight gain, found to have newly diagnosed CHF. - Patient Problems (1) Acute systolic (congestive) heart failure Current Visit: Yes Status: Acute Priority: High Code(s): I50.21 - ACUTE SYSTOLIC (CONGESTIVE) HEART FAILURE SNOMED Code(s): 451568914 Comment: - Diuresis is excellent w/ current medications, edema is improved. - off furosemide, continue oral torsemide - continue Aspirin, Coreg, Valsartan, and Aldactone (2) Cellulitis Current Visit: Yes Status: Acute Priority: Medium Code(s): L03.90 - CELLULITIS, UNSPECIFIED SNOMED Code(s): 802924784 Comment: - Looks mainly due to chronic stasis secondary to pitting edema. - Continues to improve, doing well with PO antbiotics (3) DVT prophylaxis Current Visit: Yes Status: Acute Priority: Low Code(s): Z29.9 - ENCOUNTER FOR PROPHYLACTIC MEASURES, UNSPECIFIED SNOMED Code(s): 606013129 Comment: - SQ heparin stopped due to hematuria (4) Hypokalemia Current Visit: Yes Status: Acute Priority: Medium Code(s): E87.6 - HYPOKALEMIA SNOMED Code(s): 08937432 Comment: -resolved (5) Urinary retention Current Visit: Yes Status: Acute Priority: High Code(s): R33.9 - RETENTION OF URINE, UNSPECIFIED SNOMED Code(s): 182367274 Comment: -Dr. Brower placed suprapubic last night, and took to OR this AM for cysto and velasquez. -started on Flomax for BPH -Can go home tomorrow w/ velasquez, see Dr. Brower as outpatient. Status and Disposition: Inpatient. Discharge tomorrow
--- NOTE | 2019-05-27 17:36 | OP ---
DATE OF OPERATION: 05/27/19 - ROOM #431 DATE OF : 52 SURGEON: Wilbert Brower MD ANESTHESIOLOGIST: Dr. Camara ANESTHESIA: Local plus intravenous sedation. PRE-OP DIAGNOSES: 1. Gross hematuria. 2. Urinary retention. 3. Enlarged prostate. POST-OP DIAGNOSES: 1. Gross hematuria. 2. Urinary retention. 3. Enlarged prostate. OPERATIVE PROCEDURE: Cystoscopy, insertion of complex catheter (Councill tip catheter) and removal of suprapubic catheter. COMPLICATIONS: None. POSTOPERATIVE CONDITION: Stable. CATHETER: 22-Afghan Councill tip Dodd. INDICATIONS: Tone Borjas is a 69-year-old gentleman who has been admitted for congestive heart failure. He initially had a Dodd placed on admission, which was removed on 05/25/19; however, he had difficulty voiding and attempts initially by nursing staff and subsequently by myself at placing a Coude catheter were unsuccessful. He eventually underwent placement of suprapubic catheter under ultrasound guidance and continues to have hematuria. OPERATIVE FINDINGS: Markedly large prostate with suboptimal visualization of bladder secondary to hematuria. POSTOPERATIVE CONDITION: Stable. DESCRIPTION OF PROCEDURE: After induction of intravenous sedation and 2% Xylocaine gel, cystoscopy was performed. The urethra appeared normal. The prostate was markedly enlarged, especially the median lobe with some bleeding noted from the median lobe of the prostate, which made visualization difficult. The bladder was emptied. I could not get a good look at the entire bladder because of the hematuria. Since my goal was to go ahead and place a Dodd catheter, I placed a guidewire to through the cystoscope over this. I then successfully placed a 22-Afghan Councill tip Dodd catheter. This was irrigated to make sure it was draining and appeared to be draining satisfactorily. Once this was done, the previously placed suprapubic catheter was removed. The plan would be to leave the Dodd catheter in for a few weeks and then he will require cystoscopy either as an outpatient or in the hospital to try and get a better look at the bladder mucosa. The patient tolerated the procedure satisfactorily and was transferred back to the recovery area in stable condition. [id number]/CPS #: [id number] [facility]
[2019-05-27] MEDS: Tamsulosin CAP* 0.4 MG PO SCH (20:18)
[2019-05-28 07:39] LABS: ABS Basophils 0.1 10^3/ul (0-0.2); ABS Eosinophils 0.3 10^3/ul (0-0.6); ABS Lymphocytes 0.8 10^3/ul (1.0-4.8); ABS Monocytes 1.3 10^3/ul (0-0.8); ABS Neutrophils 5.3 10^3/ul (1.5-7.7); Eosinophil % 3.4 %; Hematocrit 47 % (42-52); Hemoglobin 15.5 g/dL (14.0-18.0); Lymphocyte % 10.8 %; Mean Corpuscular HGB Conc 33 g/dL (31-36); Mean Corpuscular Hemoglobin 30 pg (27-31); Mean Corpuscular Volume 90 fL (80-94); Mean Platelet Volume 9.8 fL (7.4-10.4); Nucleated Red Blood Cells % 0.1; Platelet Count 188 10^3/uL (150-450); Red Blood Count 5.16 10^6 /uL (4.18-5.48); Red Cell Distribution Width 17 % (10-15); White Blood Count 7.7 10^3/uL (3.5-10.8)
[2019-05-28 08:07] LABS: BUN/Creatinine Ratio 24.2 (8-20); Calcium 8.5 mg/dL (8.6-10.3); EGFR African American 72.9 (>60); EGFR Non-African American 60.2 (>60); Magnesium 2.2 mg/dL (1.9-2.7); Potassium 3.9 mmol/L (3.5-5.0)
[2019-05-28] MEDS: Carvedilol TAB* 6.25 MG PO SCH ×2 (10:30→20:50)
[2019-05-28] MEDS: Finasteride TAB* 5 MG PO SCH (10:31)
[2019-05-28] MEDS: Valsartan TAB* 80 MG PO SCH ×2 (10:31→20:50)
[2019-05-28] MEDS: Spironolactone TAB* 25 MG PO SCH (10:31)
[2019-05-28] MEDS: Torsemide TAB* 20 MG PO SCH (10:32)
[2019-05-28] MEDS: Cephalexin CAP* 500 MG PO SCH ×4 (10:32→20:50)
[2019-05-28] MEDS: Potassium Chlor TAB* 10 MEQ TAB.ER PO SCH (10:32)
[2019-05-28] MEDS: Aspirin EC TAB* 81 MG TAB.EC PO SCH (10:32)
[2019-05-28] MEDS: Nystatin TOP POWDER* 15 GM BTL TOPICAL SCH ×3 (10:33→20:50)
--- NOTE | 2019-05-28 16:47 | PN ---
Subjective Date of Service: 05/28/19 Interval History: Patient has no complaints. He feels he can manage velasquez, leg bag. He is aware he needs to see cardiology, urology, and primary care on discharge. Willing to go home w/ brother later today. Family History: Unchanged from Admission Social History: Unchanged from Admission Past Medical History: Unchanged from Admission Objective Active Medications: Acetaminophen (Tylenol Tab*) 650 mg PO Q6H PRN PRN Reason: MILD PAIN or TEMP > 100.4 Last Admin: 05/27/19 03:19 Dose: 650 mg Aspirin (Aspirin Ec Tab*) 81 mg PO DAILY [facility] Last Admin: 05/28/19 10:32 Dose: 81 mg Carvedilol (Coreg Tab*) 12.5 mg PO BID [facility] Last Admin: 05/28/19 10:30 Dose: 12.5 mg Cephalexin HCl (Keflex Cap*) 500 mg PO QID [facility] Last Admin: 05/28/19 14:46 Dose: 500 mg Finasteride (Proscar Tab*) 5 mg PO DAILY [facility] Last Admin: 05/28/19 10:31 Dose: 5 mg Lidocaine (Topicaine 4% Gel*) 1 applic TOPICAL Q4H PRN PRN Reason: Penile discomfort Last Admin: 05/27/19 03:19 Dose: 1 applic Nystatin (Nystatin Top Powder*) 1 applic TOPICAL TID [facility] Last Admin: 05/28/19 14:46 Dose: 1 applic Potassium Chloride (Klor Con Er Tab*) 10 meq PO DAILY [facility] Last Admin: 05/28/19 10:32 Dose: 10 meq Spironolactone (Aldactone Tab*) 25 mg PO DAILY [facility] Last Admin: 05/28/19 10:31 Dose: 25 mg Tamsulosin HCl (Flomax Cap*) 0.4 mg PO BEDTIME [facility] Last Admin: 05/27/19 20:18 Dose: 0.4 mg Torsemide (Demadex*) 40 mg PO DAILY [facility] Last Admin: 05/28/19 10:32 Dose: 40 mg Valsartan (Diovan Tab*) 80 mg PO BID [facility] Last Admin: 05/28/19 10:31 Dose: 80 mg Vital Signs - 8 hr 05/28/19 05/28/19 11:13 15:06 Temperature 36.4 C 36.3 C Pulse Rate 86 74 Respiratory 20 20 Rate Blood Pressure 120/79 118/76 (mmHg) O2 Sat by Pulse 94 96 Oximetry Oxygen Devices in Use Now: None Appearance: alert, no distress Neck: NL Appearance and Movements; NL JVP Respiratory: Clear to Auscultation Cardiovascular: NL Sounds; No Murmurs; No JVD, - - trace LE edema bilat Neurological: Alert and Oriented x 3 Lines/Tubes/Other Access: Clean, Dry and Intact Peripheral IV Nutrition: Taking PO's Result Diagrams: 05/28/19 07:13 05/28/19 07:13 Assess/Plan/Problems-Billing Assessment: Mr Borjas is a 69yo M with no PMH, who has not seen a physician in 15 years ; who presented to ED with months of progressive dyspnea on exertion, orthopnea , PND, edema with 40lbs weight gain, found to have newly diagnosed CHF. - Patient Problems (1) Acute systolic (congestive) heart failure Current Visit: Yes Status: Acute Priority: High Code(s): I50.21 - ACUTE SYSTOLIC (CONGESTIVE) HEART FAILURE SNOMED Code(s): 933463535 Comment: - Diuresis is excellent w/ current medications, edema is improved. - off furosemide, will lower dose oral torsemide - continue Aspirin, Coreg, Valsartan, and Aldactone (2) Cellulitis Current Visit: Yes Status: Acute Priority: Medium Code(s): L03.90 - CELLULITIS, UNSPECIFIED SNOMED Code(s): 092335454 Comment: - Looks mainly due to chronic stasis secondary to pitting edema. - Continues to improve, doing well with PO antbiotics (3) DVT prophylaxis Current Visit: Yes Status: Acute Priority: Low Code(s): Z29.9 - ENCOUNTER FOR PROPHYLACTIC MEASURES, UNSPECIFIED SNOMED Code(s): 108893475 Comment: - SQ heparin stopped due to hematuria (4) Hypokalemia Current Visit: Yes Status: Acute Priority: Medium Code(s): E87.6 - HYPOKALEMIA SNOMED Code(s): 10296501 Comment: -resolved (5) Urinary retention Current Visit: Yes Status: Acute Priority: High Code(s): R33.9 - RETENTION OF URINE, UNSPECIFIED SNOMED Code(s): 067163025 Comment: -Will need velasquez for 1-2 months -started on Flomax/Proscar for BPH -Can go home tomorrow w/ velasquez, see Dr. Brower as outpatient. Status and Disposition: Brother unavailable tonight, will discharge tomorrow
[2019-05-28] MEDS: Tamsulosin CAP* 0.4 MG PO SCH (20:50)
[2019-05-29] MEDS ORDERED: Torsemide TAB* 20 MG PO SCH (09:00)
[2019-05-29] MEDS: Aspirin EC TAB* 81 MG TAB.EC PO SCH (10:28)
[2019-05-29] MEDS: Carvedilol TAB* 6.25 MG PO SCH (10:28)
[2019-05-29] MEDS: Finasteride TAB* 5 MG PO SCH (10:29)
[2019-05-29] MEDS: Cephalexin CAP* 500 MG PO SCH (10:29)
[2019-05-29] MEDS: Nystatin TOP POWDER* 15 GM BTL TOPICAL SCH (10:29)
[2019-05-29] MEDS: Potassium Chlor TAB* 10 MEQ TAB.ER PO SCH (10:30)
[2019-05-29] MEDS: Spironolactone TAB* 25 MG PO SCH (10:30)
[2019-05-29] MEDS: Valsartan TAB* 80 MG PO SCH (10:31)
[2019-05-29 12:11] VITALS: BP 148/84
--- NOTE | 2019-05-29 23:30 | DS ---
CC: Dr. Brower; Dr. Maier; [facility], Dr. Colon * DISCHARGE SUMMARY: DATE OF ADMISSION: 05/20/19 DATE OF DISCHARGE: 05/29/19 PRIMARY DIAGNOSIS: New onset systolic heart failure with ejection fraction measured at 25% to 30%. SECONDARY DIAGNOSES: 1. Nonischemic cardiomyopathy. 2. Hypertension. 3. Obesity. 4. Bilateral lower extremity edema with venous stasis ulcers. 5. Benign prostatic hypertrophy. 6. Bladder outlet obstruction. 7. Nonsustained ventricular tachycardia. 8. Multifocal atrial tachycardia. 9. Hypokalemia. MEDICATIONS ON DISCHARGE: 1. Acetaminophen 650 mg p.o. q.6 hours p.r.n. pain or fever. 2. Aspirin 81 mg p.o. q. day. 3. Carvedilol 12.5 mg p.o. b.i.d. 4. Finasteride 5 mg p.o. q. day. 5. Nystatin powder topically to groin folds b.i.d. 6. Potassium chloride (Klor-Con) 10 mEq p.o. q. day. 7. Spironolactone 25 mg p.o. q.a.m. 8. Tamsulosin 0.4 mg p.o. q.p.m. 9. Torsemide 20 mg p.o. q. day. 10. Valsartan 80 mg p.o. b.i.d. CONSULTATIONS: Dr. Maier of Cardiology. PROCEDURES: 1. Cardiac catheterization performed on 05/24/[address] Templeton. 2. Cystoscopy guided placement of Dodd catheter on 05/27/[address] Brower. 3. Suprapubic catheter placement in Interventional Radiology on 05/26/[address] Serra. HOSPITAL COURSE: A 69-year-old man, who avoided seeking medical care for more than 10 years, presented to the emergency room with aggressive dyspnea and lower extremity edema. His only known medical history at that point was hypertension and he is not taking any medications. The patient's initial laboratory testing included a troponin of 0.17 which narciso to 0.31 on the day after admission and fell to 0.17 subsequently. His BNP on admission was greater than 1300. Creatinine was 1.51 and the creatinine fell to 1.2 with diuresis suggesting cardiorenal syndrome. The patient was admitted to the hospital with a diagnosis of congestive heart failure and had diuresis with IV furosemide and oral torsemide. His fluid balance was negative 2000 to 4000 mL per day for several days and his weight fell from 118 kg on admission to 102 kg on discharge. Echocardiogram obtained on 05/20/19 showed ejection fraction of 25% to 30% with moderate diffuse hypokinesis, mild to moderate aortic regurgitation. On presentation, the patient also had multifocal atrial tachycardia on EKG as well as episodes of ventricular tachycardia on telemetry. The patient was followed closely by Cardiology, mainly Dr. Maier. He was taken to the laboratory apparatus glass grinder on 05/24/[address] Templeton and was found to have normal coronary arteries. A ventriculogram was not documented. The patient was stabilized with beta-blockers, diuretics, and ARB. He appeared close to ready for discharge on 05/26/19. However, the patient had a Dodd catheter for most of the hospital stay and this was removed. On 05/26/19, he developed inability to urinate after having episode of gross hematuria. An urgent consultation with Urology was obtained and a suprapubic catheter had to be placed because replacing the Dodd catheter was impossible. The patient was then taken to the operating room by Dr. Brower on 05/27/19 where he placed a Dodd catheter under cystoscopic guidance. He reported that there was severe BPH and a secondary tract formed by attempted Dodd placement earlier in the hospital stay. The patient is advised to see Dr. Brower as an outpatient for management of the Dodd catheter. He was started on finasteride and Flomax to reduce BPH over time with a goal to remove the Dodd catheter in 1 to 2 months. Other important laboratory tests during the hospital stay: The patient had a blood gas initially of pH of 7.46, pCO2 of 35, pO2 of 54 showing acute hypoxic respiratory failure related to heart failure. His cholesterol was checked and his LDL was 48. The patient did have multiple excoriated open areas on his legs on admission and a large 2 x 2 cm ulcer on the dorsum of his right foot. He was treated for bilateral cellulitis, but really this is bilateral stasis ulceration which improved with reduction of his edema and IV antibiotics. The patient finished a course of a week of antibiotics in the hospital, does not go home on antibiotics. He did also have a chest CT on admission on 05/21/19 that showed alveolar opacities in the left lung suggestive of pneumonitis. There were also bilateral effusions and surgical clips in the lower mediastinum at the GE junction consistent with a past Briana fundoplication. Repeat chest x-ray 6 weeks after discharge would be appropriate. DISPOSITION: To home where he lives next door to his brother, who is his caregiver. ACTIVITIES: His activities should be to ambulate as tolerated. CONDITION: Fair. STATUS: Inpatient. FOLLOWUP PLAN: The followup plan is to see the [facility]. He also has visiting nurse. He will be also seen by Dr. Maier in 1 to [address] Brower in 4 to 7 days. TIME SPENT: I spent more than 45 minutes with the patient on the day of discharge and completed necessary paper work for discharge. [id number]/CPS #: [id number]
== END 2019-05-29 12:30 | disposition home health service (06) | DRG 286 ==
LOC: ED 10:13 → MEDTELE 14:58
PROVIDERS: ADMIT Internal Medicine; ATTEND Internal Medicine
PROC: 0T9B70Z Drainage of Bladder with Drainage Device, Via Natural or Artificial Opening (ICD-10-PCS; 2019-05-20)
PROC: B2111ZZ Fluoroscopy of Multiple Coronary Arteries using Low Osmolar Contrast (ICD-10-PCS; principal; 2019-05-24 08:30)
PROC: 0T9B30Z Drainage of Bladder with Drainage Device, Percutaneous Approach (ICD-10-PCS; 2019-05-26)
PROC: 0T9B80Z Drainage of Bladder with Drainage Device, Via Natural or Artificial Opening Endoscopic (ICD-10-PCS; 2019-05-27)
DX: I11.0 Hypertensive heart disease with heart failure (principal); J96.01 Acute respiratory failure with hypoxia; N17.9 Acute kidney failure, unspecified; E87.2 Acidosis; L03.116 Cellulitis of left lower limb; L03.115 Cellulitis of right lower limb; I47.2 Ventricular tachycardia; I47.1 Supraventricular tachycardia; N13.8 Other obstructive and reflux uropathy; L97.419 Non-pressure chronic ulcer of right heel and midfoot with unspecified severity; K21.9 Gastro-esophageal reflux disease without esophagitis; S90.811A Abrasion, right foot, initial encounter; N40.1 Benign prostatic hyperplasia with lower urinary tract symptoms; R33.8 Other retention of urine; I50.23 Acute on chronic systolic (congestive) heart failure; I25.5 Ischemic cardiomyopathy; R79.89 Other specified abnormal findings of blood chemistry; I35.1 Nonrheumatic aortic (valve) insufficiency; E87.6 Hypokalemia; I87.8 Other specified disorders of veins; E66.01 Morbid (severe) obesity due to excess calories; R31.0 Gross hematuria; X58.XXXA Exposure to other specified factors, initial encounter; Y92.009 Unspecified place in unspecified non-institutional (private) residence as the place of occurrence of the external cause; Z82.49 Family history of ischemic heart disease and other diseases of the circulatory system; Z83.3 Family history of diabetes mellitus; Z80.42 Family history of malignant neoplasm of prostate; Z68.37 Body mass index [BMI] 37.0-37.9, adult; Z79.82 Long term (current) use of aspirin
CPT/HCPCS: 36415; 36600; 51100; 51102; 71046; 71250; 76857; 76942; 77002; 80048; 80053; 80061; 81003; 81015; 82803; 83605; 83735; 83880; 84443; 84484; 85025; 87040; 87086; 90686; 90732; 93005; 93306; 93454; 99156; 99157; 99285; A9270-GY; C2627; C8929; G8978-GP-CJ; G8979-GP-CH; G8979-GP-CI; J0690; J0696; J1644; J1940; J2250; J2310; J3010; Q9967

== ENCOUNTER 2019-06-04 16:43 | Inpatient (IN) | payer MEDICARE ==
--- OUTSIDE RECORDS SUMMARY | 2019-06-04 16:48 | XMS REPORT | Continuity of Care Document ---
:1950 External Reference #:[id number] Author Name Luigi Maier, DO FACC (transmitted by agent of provider Meera Pereyra) Address 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 Medicine Problems Description No Information Available Social History Type Date Description Comments Sex Unknown Tobacco Use Start: Unknown Never Smoked Cigarettes Smoking Status Reviewed: 05/31/19 Never Smoked Cigarettes ETOH Use Denies alcohol use Tobacco Use Start: Unknown Patient has never smoked Recreational Drug Use Denies Drug Use Exercise Type/Frequency Does not exercise Allergies, Adverse Reactions, Alerts Description No Known Drug Allergies Medications Active Medications SIG Qnty Indications Ordering Provider Date Torsemide 1 by mouth 90tabs Luigi Maier, 05/31/2019 10mg Tablets every day DO FACC Acetaminophen ER 1 by mouth prn Unknown 650mg Tablets ER Carvedilol 1 by mouth 180tabs Luigi Maier, 12.5mg Tablets twice a day DO FACC Finasteride 1 by mouth Unknown 5mg Tablets every day Nystatin bid prn Unknown Spironolactone 1 by mouth 90tabs Luigi Maier, 25mg Tablets every day DO FACC Tamsulosin HCL 1 by mouth Unknown 0.4mg every day Capsules Valsartan 1 by mouth 180tabs Luigi Maier, 80mg Tablets twice daily DO FACC Immunizations CPT Code Status Date Vaccine Lot # [id number] Given 05/30/2019 Pneumococcal Conjugate Vaccine 13 Valent For [id number] Intramuscular Use Vital Signs Date Vital Result Comment 05/31/2019 9:58am Height 65 inches 5'5" Weight 227.00 lb with shoes Heart Rate 82 /min BP Systolic Sitting 110 mmHg Lue BP Diastolic Sitting 70 mmHg Lue BP Systolic Standing 104 mmHg Lue BP Diastolic Standing 70 mmHg Lue BMI (Body Mass Index) 37.8 kg/m2 05/30/2019 1:32pm Height 65 inches 5'5" Weight 225.00 lb Heart Rate 91 /min BP Systolic Sitting 115 mmHg BP Diastolic Sitting 80 mmHg O2 % BldC Oximetry 94 % BMI (Body Mass Index) 37.4 kg/m2 Results Description No Information Available Procedures Date Code Description Status 05/31/2019 97614 EKG Tracing & Interpretation Completed 05/20/2019 25486 ECHO Transthorasic Realtime 2D W Doppler & Color Flow Hosp Completed Medical Devices Description No Information Available Encounters Type Date Location Provider Dx Diagnosis Office Visit 05/22/2019 [facility] Luigi Maier, I50.21 Acute systolic 7:10a [facility]ist DO FACC (congestive) heart failure I10 Essential (primary) hypertension E66.9 Obesity, unspecified Office Visit 05/21/2019 7:09a [facility] Luigi SNgoc I50.21 Acute systolic [facility] Maier, DO (congestive) heart FACC failure I10 Essential (primary) hypertension E66.9 Obesity, unspecified Office Visit 05/20/2019 9:00a [facility] Luigi SNgoc I50.9 Heart failure, [facility] Maier, DO unspecified FACC I50.21 Acute systolic (congestive) heart failure I10 Essential (primary) hypertension E66.9 Obesity, unspecified Assessments Date Code Description Provider 05/31/2019 I50.22 Chronic systolic (congestive) heart Luigi Maier, DO FACC failure 05/30/2019 I50.21 Acute systolic (congestive) heart failure Ozzy Thomas M.D. 05/30/2019 I10 Essential (primary) hypertension Ozzy Thomas M.D. 05/30/2019 K21.9 Gastro-esophageal reflux disease without Ozzy Thomas M.D. esophagitis 05/30/2019 E66.9 Obesity, unspecified Ozzy Thomas M.D. 05/30/2019 N40.1 Benign prostatic hyperplasia with lower Ozzy Thomas M.D. urinary tract symptoms 05/30/2019 Z23 Encounter for immunization Ozzy Thomas M.D. 05/22/2019 I50.21 Acute systolic (congestive) heart failure Luigi Maier , DO FAC 05/22/2019 I10 Essential (primary) hypertension Luigi Maier, DO FAC 05/22/2019 E66.9 Obesity, unspecified Luigi Maier, DO FAC 05/21/2019 I50.21 Acute systolic (congestive) heart failure Luigi Maier , DO FAC 05/21/2019 I10 Essential (primary) hypertension Luigi Maier, DO FAC 05/21/2019 E66.9 Obesity, unspecified Luigi Maier, DO FAC 05/20/2019 I50.9 Heart failure, unspecified Luigi Maier, DO FAC 05/20/2019 I50.21 Acute systolic (congestive) heart failure Luigi Maier , DO FAC 05/20/2019 I10 Essential (primary) hypertension Luigi Maier, DO FAC 05/20/2019 E66.9 Obesity, unspecified Luigi Maier, DO [facility] Plan of Treatment Future Appointment(s):06/16/2019 10:00 am - Luigi Maier DO FACC at [facility]05/31/2019 - Luigi Maier DO FACCI50.22 Chronic systolic ( congestive) heart failureComments:Stop taking aspirin Stop taking potassium supplement (klor-con)Decrease torsemide to 10 mg once a day. You can cut the 20 mg tablets in 1/2 until finished. Have blood work in 2 weeksFollow up:f/u 2 weeks with lab work prior to visit Functional Status Description No Information Available Mental Status Description No Information Available Referrals Description No Information Available
--- OUTSIDE RECORDS SUMMARY | 2019-06-04 16:48 | XMS REPORT | Continuity of Care Document ---
:1950 External Reference #:[id number] Author Name Ozzy Thomas M.D. 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 [phone] Medicine Problems Description No Information Available Social History Type Date Description Comments Sex Unknown Tobacco Use Start: Unknown Never Smoked Cigarettes Smoking Status Reviewed: 05/30/19 Never Smoked Cigarettes ETOH Use Denies alcohol use Tobacco Use Start: Unknown Patient has never smoked Allergies, Adverse Reactions, Alerts Description No Known Drug Allergies Medications Active Medications SIG Qnty Indications Ordering Provider Date Acetaminophen ER 1 by mouth prn Unknown 650mg Tablets ER Aspirin 1 by mouth every Unknown 81mg Tablets DR day Carvedilol 1 by mouth twice Unknown 12.5mg Tablets a day Finasteride 1 by mouth every Unknown 5mg Tablets day Nystatin bid Unknown Klor-Con 10 1 by mouth every Unknown 10Meq Tablets ER day Spironolactone 1 by mouth every Unknown 25mg Tablets day Tamsulosin HCL 1 by mouth every Unknown 0.4mg Capsules day Torsemide 1 tablet po Unknown 20mg Tablets daily Valsartan 1 by mouth every Unknown 80mg Tablets day Immunizations CPT Code Status Date Vaccine Lot # [id number] Given 05/30/2019 Pneumococcal Conjugate Vaccine 13 Valent For [id number] Intramuscular Use Vital Signs Date Vital Result Comment 05/30/2019 1:32pm Height 65 inches 5'5" Weight 225.00 lb Heart Rate 91 /min BP Systolic Sitting 115 mmHg BP Diastolic Sitting 80 mmHg O2 % BldC Oximetry 94 % BMI (Body Mass Index) 37.4 kg/m2 Results Description No Information Available Procedures Date Code Description Status 05/20/2019 26188 ECHO Transthorasic Realtime 2D W Doppler & Color Flow Hosp Completed Medical Devices Description No Information Available Encounters Type Date Location Provider Dx Diagnosis Office Visit 05/22/2019 [facility] Luigi Maier, I50.21 Acute systolic 7:10a Of Apprentice/Lineman DO FACC (congestive) heart failure I10 Essential (primary) hypertension E66.9 Obesity, unspecified Office Visit 05/21/2019 7:09a [facility] Luigi Shepherd I50.21 Acute systolic Of Apprentice/Lineman Maier, DO (congestive) heart FACC failure I10 Essential (primary) hypertension E66.9 Obesity, unspecified Office Visit 05/20/2019 9:00a [facility] Luigi Shepherd I50.9 Heart failure, Of [facility]rentice/[employer]eman Maier, DO unspecified FACC I50.21 Acute systolic (congestive) heart failure I10 Essential (primary) hypertension E66.9 Obesity, unspecified Assessments Date Code Description Provider 05/30/2019 I50.21 Acute systolic (congestive) heart failure [...] (congestive) heart failure Luigi Maier , DO FACC 05/22/2019 I10 Essential (primary) hypertension Luigi Maier, DO FACC 05/22/2019 E66.9 Obesity, unspecified Luigi Maier, DO FACC 05/21/2019 I50.21 Acute systolic (congestive) heart failure Luigi Maier , DO FACC 05/21/2019 I10 Essential (primary) hypertension Luigi DoyleNgoc Darrion, DO FAC 05/21/2019 E66.9 Obesity, unspecified Luigi SNgoc Maier, DO FAC 05/20/2019 I50.9 Heart failure, unspecified Luigijarrett Maier, DO FACC 05/20/2019 I50.21 Acute systolic (congestive) heart failure Luigi Cora Maier , DO FACC 05/20/2019 I10 Essential (primary) hypertension Luigi SNgoc Maier, DO FACC 05/20/2019 E66.9 Obesity, unspecified Luigi Maier, DO FAC Plan of Treatment Future Appointment(s):05/31/2019 10:20 am - Luigi Maier DO [facility] at [facility]05/30/2019 - Ozzy Thomas M.D.I50.21 Acute systolic ( congestive) heart failureComments:Several month hx of easier dyspnea on exertion with acute edema, SOB sx prompting admission 05/20. Dx'd with a non- ischemic cardiomyopathy of uncertain cause. EF 25-30% on echo. Sx improved and weight down 16 kg with diuresis. No cardiac c/o at present. Cardiology recheck pending and pt will needrepeat labs on his new Rx in a week or two. No hx snoring/apnea pt knows of, but will check overnight oximetry for any nocturnal hypoxia. Diet, salt avoidance, weight loss, and regular exercise [id number] Essential (primary) hypertensionComments:New dx of HTN; BP good today on Rx.K21.9 Gastro-esophageal reflux disease without esophagitisComments: No heartburn sx following surgical Rx years ago. No other GI c/o. No past colon screenings, so routine exam needed once cardiac status [id number] Obesity , unspecifiedNew Orders:Overnight Oximetry, Ordered: 05/30/19Comments:Weight stable over the years per pt. Glucose, lipids ok in the hospital. Diet, weight loss juihkowO26.1 Benign prostatic hyperplasia with lower urinary tract symptomsComments:Prostate enlargement noted in the hospital and pt d/c'd with a Dodd. On drug Rx for BPH now and urology recheck pending.Z23 Encounter for immunizationComments:Prevnar today; pt also due for a flu shot, tetanus booster , and shingles vaccine. Regualr dental and eye exams discussed Functional Status Description No Information Available Mental Status Description No Information Available Referrals Description No Information Available
--- NOTE | 2019-06-04 17:03 | ED ---
GI/ HPI - HPI Summary HPI Summary: Pt is a 69 y/o M presenting to the ED with a chief complaint of GI symptoms. He presents with his brother who states he was released from [facility] about 1 week ago after getting his CHF and his foot infection under control. Since last night, , he has had multiple episodes of diarrhea with black stools. He states he has had this before with his catheter. He reports pain in the penile area as well as nausea. He denies lightheadedness, dizziness, vomiting, or weakness, but states he has been sleeping all day. He has not taken Iron or Pepto-Bismol recently. - History of Current Complaint Chief Complaint: EDGIBleed Time Seen by Provider: 06/04/19 16:53 Stated Complaint: BLACK STOOL Hx Obtained From: Patient, Family/Floral Specialist - brother Onset/Duration: Started Days Ago, Still Present Timing: Constant, Lasting Days Severity: Mild Current Severity: None Pain Intensity: 0 Additional Locations for Males: Penis Associated Signs and Symptoms: Positive: Nausea, Black Tarry Stool, Diarrhea. Negative: Dizziness, Weakness, Vomiting, Lightheadedness Aggravating Factor(s): Nothing Alleviating Factor(s): Nothing - Additional Pertinent History Primary Care Physician: [id number] - Allergy/Home Medications Allergies/Adverse Reactions: Allergies Allergy/AdvReac Type Severity Reaction Status Date / Time No Known Allergies Allergy Verified 05/20/19 10:14 PMH/Surg Hx/FS Hx/Imm Hx Previously Healthy: Yes Endocrine/Hematology History: Reports: Hx Blood Transfusions Denies: Hx Anticoagulant Therapy, Hx Diabetes Cardiovascular History: Reports: Hx Hypertension Denies: Hx Angina, Hx Coronary Artery Disease, Hx Hypercholesterolemia, Hx Myocardial Infarction, Hx Pacemaker/ICD, Hx Peripheral Vascular Disease, Hx Valvular Heart Disease Respiratory History: Denies: Hx Asthma, Hx Chronic Obstructive Pulmonary Disease (COPD) GI History: Reports: Hx Gastroesophageal Reflux Disease, Hx Hiatal Hernia - surgically repaired History: Denies: Hx Chronic Renal Failure Sensory History: Reports: Hx Contacts or Glasses Denies: Hx Hearing Aid Opthamlomology History: Reports: Hx Contacts or Glasses Neurological History: Denies: Hx Seizures, Hx Transient Ischemic Attacks (TIA) Psychiatric History: Reports: Other Psychiatric Issues/Disorders - per brother - 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 Negative: Vomiting Neurological: Negative - lightheadedness, dizziness Negative: Weakness All Other Systems Reviewed And Are Negative: Yes Physical Exam - Summary Physical Exam Summary: Constitutional: Well-developed, Well-nourished, Alert. (-) Distressed Skin: Warm, Dry HENT: Normocephalic; Atraumatic Eyes: Conjunctiva normal Neck: Musculoskeletal ROM normal neck. (-) JVD, (-) Stridor, (-) Tracheal deviation Cardio: Rhythm regular, rate normal, Heart sounds normal; Intact distal pulses; Radial pulses are 2+ and symmetric. (-) Murmur Pulmonary/Chest wall: Effort normal. (-) Respiratory distress, (-) Wheezes, (-) Rales Abd: Soft, (-) tenderness, (-) Distension, (-) Guarding, (-) Rebound Musculoskeletal: (-) Edema Lymph: (-) Cervical adenopathy Neuro: Alert, Oriented x3 Psych: Mood and affect Normal Rectal: Black stool Triage Information Reviewed: Yes Vital Signs On Initial Exam: Initial Vitals Temp Pulse Resp BP Pulse Ox 97.8 F 95 16 107/62 98 06/04/19 16:44 06/04/19 16:44 06/04/19 16:44 06/04/19 16:44 06/04/19 16:44 Vital Signs Reviewed: Yes Procedures - Sedation Patient Received Moderate/Deep Sedation with Procedure: No Diagnostics - Vital Signs Vital Signs Temp Pulse Resp BP Pulse Ox 06/04/19 16:44 97.8 F 95 16 107/62 98 - Laboratory Result Diagrams: 06/04/19 17:10 06/04/19 17:10 Lab Statement: Any lab studies that have been ordered have been reviewed, and results considered in the medical decision making process. GIGU Course/Dx - Course Course Of Treatment: Patient is here with possible GI bleed. Patient's had dark stools over the past day. Patient does have black stools on exam or guaiac positive. Patient had a drop of his hematocrit from 15.5-14 over the past week. Patient had no tenderness so a CT was not performed. Patient is admitted to medicine for further monitoring and workup. - Diagnoses Provider Diagnoses: GI bleed - Physician Notifications Discussed Care Of Patient With: Alvarez Ramirez Time Discussed With Above Provider: 19:04 Instructed by Provider To: Admit As Inpatient Discharge ED - Sign-Out/Discharge Documenting (check all that apply): Patient Departure - Discharge Plan Condition: Stable Disposition: ADMITTED TO [facility] Referrals: Ozzy Thomas MD [Primary Care Provider] - - Billing Disposition and Condition Condition: STABLE Disposition: Admitted to [facility] - Attestation Statements Document Initiated by Kyara: Yes Documenting Scribe: Mary Grace Busch Provider For Whom Kyara is Documenting (Include Credential): Champ Ren MD. Scribe Attestation: Mary Grace Nelson scribed for Champ Ren MD. on 06/04/19 at 1950. Scribe Documentation Reviewed: Yes Provider Attestation: The documentation as recorded by the markibeMary Grace accurately reflects the service I personally performed and the decisions made by Champ ruiz MD. Status of Scribe Document: Viewed
[2019-06-04 17:18] LABS: ABS Basophils 0.1 10^3/ul (0-0.2); ABS Eosinophils 0.1 10^3/ul (0-0.6); ABS Lymphocytes 1.2 10^3/ul (1.0-4.8); ABS Neutrophils 8.2 10^3/ul (1.5-7.7); Eosinophil % 1.1 %; Hematocrit 43 % (42-52); Lymphocyte % 11.3 %; Mean Corpuscular HGB Conc 33 g/dL (31-36); Mean Corpuscular Hemoglobin 29 pg (27-31); Mean Corpuscular Volume 91 fL (80-94); Mean Platelet Volume 9.4 fL (7.4-10.4); Platelet Count 323 10^3/uL (150-450); Red Blood Count 4.75 10^6 /uL (4.18-5.48); Red Cell Distribution Width 18 % (10-15); White Blood Count 10.6 10^3/uL (3.5-10.8)
[2019-06-04 17:26] LABS: INR 1.07 (0.82-1.09)
[2019-06-04 17:36] LABS: Albumin 3.4 g/dL (3.2-5.2); BUN/Creatinine Ratio 66.7 (8-20); Calcium 8.9 mg/dL (8.6-10.3); EGFR African American 65.3 (>60); EGFR Non-African American 53.9 (>60); Globulin 3.3 g/dL (2-4); Potassium 4.8 mmol/L (3.5-5.0); Total Bilirubin 0.7 mg/dL (0.2-1.0); Total Protein 6.7 g/dL (6.4-8.9)
[2019-06-04] MEDS ORDERED: NS 0.9% 1000 ML** 1,000 ML IV SCH ×2 (19:45→20:04)
[2019-06-04] MEDS ORDERED: Pantoprazole IV* 40 MG IV ONE (20:02)
[2019-06-04 20:31] LABS: Hematocrit 41 % (42-52); Hemoglobin 13.7 g/dL (14.0-18.0)
[2019-06-04] MEDS ORDERED: Valsartan TAB* 80 MG PO SCH (21:00)
[2019-06-04] MEDS: Carvedilol TAB* 6.25 MG PO SCH (21:24)
[2019-06-04] MEDS: Tamsulosin CAP* 0.4 MG PO SCH (21:31)
--- NOTE | 2019-06-04 22:47 | HP ---
CC: Dr. Luigi Maier; Dr. Thomas; Dr. Sridevi Bain * ADMISSION HISTORY AND PHYSICAL: DATE OF ADMISSION: 06/04/19 PRIMARY CARE PROVIDER: Ozzy Thomas MD. GROUNDWATER MONITORING TECHNICIAN: Luigi Maier DO. GI SERVICE: Sridevi Bain MD. ATTENDING PHYSICIAN AT ADMISSION: Alvarez Ramirez MD.* (DICTATED BY ADI VARGAS NP) CHIEF COMPLAINT: Black tarry stools. HISTORY OF PRESENT ILLNESS: Mr. Borjas is a 69-year-old male patient who was just recently discharged from the hospital on 05/29/19, at that time with a diagnosis of new onset systolic heart failure with reduced ejection fraction and nonischemic cardiomyopathy, nonsustained V-tach, and bladder outlet obstruction. The patient was medically optimized over the course of a 9-day admission at that point and discharged to home on 05/29/19, with outpatient followup. The patient states he was feeling well, had gone to both of his followup appointments with Dr. Thomas and with Dr. Maier. Dr. Maier, on Thursday of this week, stopped his aspirin and reduced his torsemide dose and stated that the patient did appear to be euvolemic and that his fluid status was overall improved and requested that the patient follow up in a couple of months. When the patient was home, he started having some nausea on 06/03/19, in the middle of the night. The patient states shortly thereafter, when he went to the bathroom, his nausea began to subside and then he had diarrhea. When he noticed the diarrhea in the toilet, he said it was very dark and black in color. He had multiple episodes after that. Shortly thereafter he called his brother to come and assist him because the diarrhea and black tarry stools became so profuse, he was losing control of his bowels and had diarrhea on the floor in his house. At that time then he requested to come to the emergency department for evaluation. He was concerned that his stools were consistent with GI bleeding. In the ED, he was noted to have two additional black tarry stools, but did not have a precipitous drop in his H and H. His vital signs at this time are stable. He is not tachycardic or hypotensive. However, given the patient's new diagnosis of cardiac disease and hypertension, and other complex comorbid conditions, the hospitalists were asked to admit the patient for GI bleed. PAST MEDICAL HISTORY: 1. Nonischemic cardiomyopathy with ejection fraction of 25% to 30%. 2. Hypertension. 3. Obesity. 4. Chronic edema with venous stasis ulcers. 5. BPH. 6. Chronic bladder outlet obstruction with Dodd catheter. 7. Nonsustained V-tach and multifocal atrial tachycardia. 8. Hypokalemia. MEDICATIONS: At home include: 1. Tylenol 650 mg p.o. q.6 hours as needed. 2. Carvedilol 12.5 mg p.o. b.i.d. 3. Finasteride 5 mg p.o. daily. 4. Spironolactone 25 mg p.o. daily. 5. Flomax 0.4 mg p.o. in the evening. 6. Torsemide 10 mg p.o. daily. 7. Valsartan 80 mg p.o. b.i.d. 8. Nystatin powder to the groin folds 2 times daily. ALLERGIES: He has no known drug allergies. SOCIAL HISTORY: The patient denies any tobacco use. Denies any alcohol use. Denies any drug use. He does live by himself. His brother, German, is his surrogate decision maker; his phone number is [phone]. His brother, German, is present at the time of admission assessment. FAMILY HISTORY: Father with prostate cancer and mother with diabetes. REVIEW OF SYSTEMS: The patient denies any fever, fatigue, chills or dizziness. No current chest pain. No shortness of breath. No current nausea or vomiting. He does endorse some lower abdominal cramping prior to his tarry stools, but otherwise denies any further constitutional complaints. PHYSICAL EXAMINATION GENERAL: Reveals an older gentleman, in no acute distress. VITAL SIGNS: Blood pressure 133/78, heart rate 86, respiratory rate 16, O2 saturation 96% on room air, with a temperature of 97.8. HEENT: The patient is atraumatic, normocephalic. PERRLA. Nonicteric sclerae. Oral mucosa is moist. Tongue is midline. NECK: Supple, nontender. No JVD noted. No carotid bruits auscultated. LUNGS: Clear bilaterally to auscultation, with no wheezing, rhonchi or rales. CARDIOVASCULAR: S1 and S2 present. No murmurs, gallops or rubs noted. Rate and rhythm are currently regular. ABDOMEN: Soft, nontender, nondistended. Positive bowel sounds in all 4 quadrants. No organomegaly appreciated. : There is a Dodd catheter draining clear yellow urine. MUSCULOSKELETAL: There is no clubbing, no cyanosis. He does have trace bipedal edema, which the patient states has improved over the last couple of weeks. He has +2 distal pulses palpable. Gross motor and sensation are intact. NEUROLOGIC: Grossly intact. Alert and oriented x3, with no focal deficits. PSYCHIATRIC: He is cooperative and appropriate. LABORATORY DATA: WBCs 10.6, RBCs 4.75, hemoglobin 14.0, hematocrit 43, MCV 91 , MCH 29, RDW 18, platelets 323. Sodium 133, potassium 4.8, chloride 102, CO2 of 22, anion gap 9, BUN 88, creatinine 1.32, GFR 53.9, BUN-creatinine ratio is 66.7, glucose 131. Calcium 8.9. Total bilirubin 0.70, AST 28, ALT 52, alk phos 101. Total protein 6.7, albumin 3.4, globulin 3.3, albumin-globulin ratio 1.0. INR is 1.07. IMPRESSION: Mr. Borjas is a 69-year-old male with a new diagnosis of nonischemic cardiomyopathy, bladder outlet obstruction, and accelerated hypertension who now presents to the emergency department with black tarry stools and likely has upper GI bleed. PLAN: The patient will be admitted to telemetry. 1. Gastrointestinal bleed: The patient will be kept n.p.o. He has been given 80 mg of Protonix IV. I have reached out to Dr. Bain of GI who requested serial H and H be checked every 6 hours. It should be noted that his last H and H at discharge was 16.8 and 52 and has now dropped 2 g since then. I suspect with the addition of several more black tarry stools since coming to the ED, we may see a more precipitous drop in his H and H shortly. We will continue to monitor his lab values. If he does have any decompensation, Dr. Bain will come and evaluate the patient immediately. For now, the patient will be evaluated by GI in the morning with the likely expectation that the patient will have an endoscopy in the a.m. 2. History of nonischemic cardiomyopathy: At this time, we will continue the patient's home medications, his beta-sara, his torsemide at his new dose, which is half of what it used to be. He is no longer on aspirin. We will also continue his spironolactone. It should be noted that the patient does appear clinically dry and given that he will be n.p.o. for this procedure, we will start him on very gentle hydration with normal saline at 50 mL per hour. He does not appear to be volume overloaded obviously at this time. We will monitor this very closely. 3. History of bladder outlet obstruction: We will continue him on his finasteride and Flomax and his Dodd catheter. 4. History of ventricular and atrial arrhythmias: The patient currently is on telemetry and in regular sinus rhythm. He will be continued on tele for this admission. 5. Diet: N.p.o. 6. DVT prophylaxis: He is high risk. However, he is high risk for bleeding given his current status. He can have SCDs and ambulate as tolerated. 7. Disposition: The patient has been admitted to Telemetry. TIME SPENT: Sixty minutes spent on admission planning, 50% of which was spent face- to-face with the patient and his brother on admission plan of care. The rest of the patient's course will be determined by further diagnostics, laboratories, and any other input from other providers as warranted during this admission. This plan of care has been discussed with Dr. Alvarez Ramirez, the attending on this case, and he is in agreement with the plan of care. ADI VARGAS, DARION [id number]/[facility] #: [id number] KRIS
[2019-06-05 03:11] LABS: Hematocrit 38 % (42-52); Hemoglobin 12.7 g/dL (14.0-18.0)
[2019-06-05] MEDS ORDERED: NS 0.9% 1000 ML** 1,000 ML IV SCH (05:25)
[2019-06-05 05:51] LABS: ABS Basophils 0.1 10^3/ul (0-0.2); ABS Eosinophils 0.2 10^3/ul (0-0.6); ABS Lymphocytes 1.5 10^3/ul (1.0-4.8); ABS Monocytes 1.2 10^3/ul (0-0.8); ABS Neutrophils 7.9 10^3/ul (1.5-7.7); Eosinophil % 1.8 %; Hematocrit 37 % (42-52); Hemoglobin 12.2 g/dL (14.0-18.0); Lymphocyte % 13.5 %; Mean Corpuscular HGB Conc 33 g/dL (31-36); Mean Corpuscular Hemoglobin 30 pg (27-31); Mean Corpuscular Volume 91 fL (80-94); Mean Platelet Volume 9.6 fL (7.4-10.4); Platelet Count 280 10^3/uL (150-450); Red Blood Count 4.12 10^6 /uL (4.18-5.48); Red Cell Distribution Width 18 % (10-15); White Blood Count 10.8 10^3/uL (3.5-10.8)
[2019-06-05 06:03] LABS: BUN/Creatinine Ratio 57.5 (8-20); Calcium 8.7 mg/dL (8.6-10.3); EGFR African American 58.1 (>60); Potassium 3.9 mmol/L (3.5-5.0)
[2019-06-05 08:38] LABS: Hematocrit 38 % (42-52); Hemoglobin 12.4 g/dL (14.0-18.0)
[2019-06-05] MEDS ORDERED: Torsemide TAB 10 MG PO SCH (09:00)
[2019-06-05] MEDS ORDERED: Spironolactone TAB* 25 MG PO SCH (09:00)
[2019-06-05] MEDS: Carvedilol TAB* 6.25 MG PO SCH ×3 (09:00→21:49)
[2019-06-05] MEDS ORDERED: Influenza VAC *QUAD* 2019-20* 0.5 ML SYRINGE IM ONE (09:00)
[2019-06-05] MEDS: Finasteride TAB* 5 MG PO SCH (10:02)
[2019-06-05] MEDS: Pantoprazole IV* 40 MG IV SCH ×2 (10:02→21:46)
[2019-06-05 11:34] LABS: Hematocrit 37 % (42-52); Hemoglobin 12.2 g/dL (14.0-18.0)
--- NOTE | 2019-06-05 11:36 | PN ---
Subjective Date of Service: 06/05/19 Interval History: Hgb slowly falling, BP down to mid 90s then increased up 115. HR in 90s. No dizziness or LH or chest pain or SOB. No abdominal pain. No nausea. Had small melena around 10-11am, before that was a smear at 4am. SOLDERER BARREL RIBS 1.46 (1.32) BP pressures held. never had a colonoscopy. Hx of hiatal hernia s/p repair about 20 years ago. poor appetite since Thursday. Objective Active Medications: Carvedilol (Coreg Tab*) 12.5 mg PO BID [facility] Last Admin: 06/05/19 09:00 Dose: Not Given Finasteride (Proscar Tab*) 5 mg PO DAILY [facility] Last Admin: 06/05/19 10:02 Dose: 5 mg Sodium Chloride (Ns 0.9% 1000 Ml) 1,000 mls @ 75 mls/hr IV PER RATE [facility] Last Admin: 06/05/19 07:34 Dose: 75 mls/hr Pantoprazole Sodium (Protonix Iv*) 40 mg IV Q12H [facility] Last Admin: 06/05/19 10:02 Dose: 40 mg Tamsulosin HCl (Flomax Cap*) 0.4 mg PO BEDTIME [facility] Last Admin: 06/04/19 21:31 Dose: Not Given Vital Signs - 8 hr 06/05/19 06/05/19 06/05/19 04:22 07:56 08:00 Temperature 97.9 F 98.2 F Pulse Rate 83 90 Respiratory 18 28 28 Rate Blood Pressure 95/54 98/67 (mmHg) O2 Sat by Pulse 94 94 Oximetry 06/05/19 10:39 Temperature 97.1 F Pulse Rate 86 Respiratory 22 Rate Blood Pressure 113/77 (mmHg) O2 Sat by Pulse 98 Oximetry Oxygen Devices in Use Now: None Appearance: NAD Eyes: No Scleral Icterus Ears/Nose/Mouth/Throat: NL Teeth, Lips, Gums Neck: NL Appearance and Movements; NL JVP Respiratory: Symmetrical Chest Expansion and Respiratory Effort, Clear to Auscultation Cardiovascular: NL Sounds; No Murmurs; No JVD Abdominal: NL Sounds; No Tenderness; No Distention, No Hepatosplenomegaly Extremities: No Edema Skin: - - scab on right superior food (~3cm) Neurological: Alert and Oriented x 3 Lines/Tubes/Other Access: Clean, Dry and Intact Peripheral IV Nutrition: Taking PO's Result Diagrams: 06/05/19 05:18 06/05/19 05:18 Additional Lab and Data: Laboratory Results - last 24 hr 06/04/19 06/04/19 06/04/19 17:10 17:10 17:10 WBC 10.6 RBC 4.75 Hgb 14.0 Hct 43 MCV 91 MCH 29 MCHC 33 RDW 18 H Plt Count 323 MPV 9.4 Neut % (Auto) 77.2 Lymph % (Auto) 11.3 Whitman % (Auto) 9.1 Eos % (Auto) 1.1 Baso % (Auto) 1.3 Absolute Neuts (auto) 8.2 H Absolute Lymphs (auto) 1.2 Absolute Monos (auto) 1.0 H Absolute Eos (auto) 0.1 Absolute Basos (auto) 0.1 Absolute Nucleated RBC 0.0 Nucleated RBC % 0.0 INR (Anticoag Therapy) Sodium 133 L Potassium 4.8 Chloride 102 Carbon Dioxide 22 Anion Gap 9 BUN 88 H Creatinine 1.32 H Est GFR ( Amer) 65.3 Est GFR (Non-Af Amer) 53.9 BUN/Creatinine Ratio 66.7 H Glucose 131 H Calcium 8.9 Total Bilirubin 0.70 AST 28 ALT 52 Alkaline Phosphatase 101 Total Protein 6.7 Albumin 3.4 Globulin 3.3 Albumin/Globulin Ratio 1.0 Blood Type O Positive Antibody Screen Negative 06/04/19 06/04/19 06/05/19 17:10 20:25 03:02 WBC RBC Hgb 13.7 L 12.7 L Hct 41 L 38 L MCV MCH MCHC RDW Plt Count MPV Neut % (Auto) Lymph % (Auto) Whitman % (Auto) Eos % (Auto) Baso % (Auto) Absolute Neuts (auto) Absolute Lymphs (auto) Absolute Monos (auto) Absolute Eos (auto) Absolute Basos (auto) Absolute Nucleated RBC Nucleated RBC % INR (Anticoag Therapy) 1.07 Sodium Potassium Chloride Carbon Dioxide Anion Gap BUN Creatinine Est GFR ( Amer) Est GFR (Non-Af Amer) BUN/Creatinine Ratio Glucose Calcium Total Bilirubin AST ALT Alkaline Phosphatase Total Protein Albumin Globulin Albumin/Globulin Ratio Blood Type Antibody Screen 06/05/19 06/05/19 06/05/19 05:13 05:18 05:18 WBC 10.8 RBC 4.12 L Hgb 12.4 L 12.2 L Hct 38 L 37 L MCV 91 MCH 30 MCHC 33 RDW 18 H Plt Count 280 MPV 9.6 Neut % (Auto) 72.9 Lymph % (Auto) 13.5 Whitman % (Auto) 11.1 Eos % (Auto) 1.8 Baso % (Auto) 0.7 Absolute Neuts (auto) 7.9 H Absolute Lymphs (auto) 1.5 Absolute Monos (auto) 1.2 H Absolute Eos (auto) 0.2 Absolute Basos (auto) 0.1 Absolute Nucleated RBC 0.0 Nucleated RBC % 0.0 INR (Anticoag Therapy) Sodium 137 Potassium 3.9 Chloride 106 Carbon Dioxide 24 Anion Gap 7 BUN 84 H Creatinine 1.46 H Est GFR ( Amer) 58.1 Est GFR (Non-Af Amer) 48.0 BUN/Creatinine Ratio 57.5 H Glucose 96 Calcium 8.7 Total Bilirubin AST ALT Alkaline Phosphatase Total Protein Albumin Globulin Albumin/Globulin Ratio Blood Type Antibody Screen Microbiology and Other Data: Microbiology 06/04/19 17:26 Stool Stool Occult Blood (JESSE) - Final Assess/Plan/Problems-Billing Assessment: 69 yo male PMH recent dx HFrEF (25-30%), HTN, obesity, BPH, hiatal hernia s/p repair. Presenting with melena. - Patient Problems (1) Melena Current Visit: Yes Status: Acute Code(s): K92.1 - MELENA SNOMED Code(s): 2471238 Comment: Appreciate GI recs. Spoke with Dr. Bain protonix 40mg IV BID, s/p 80mg IV in ED IVF, npo. Likely EGD today. H&H q6. stool occult blood positive. stool frequency has reduced frequency. (2) HFrEF (heart failure with reduced ejection fraction) Current Visit: Yes Status: Acute Code(s): I50.20 - UNSPECIFIED SYSTOLIC ( CONGESTIVE) HEART FAILURE SNOMED Code(s): 249339314 Comment: Holding home torsemide 10mg, spironolactone 25mg, valsartan 80mg BID , coreg 12.5mg BID given UGIB with falling BPs. daily weights strict io's (3) Hypertension Current Visit: Yes Status: Acute Code(s): I10 - ESSENTIAL (PRIMARY) HYPERTENSION SNOMED Code(s): 30718942 Comment: holding home meds in setting of UGIB and now hypotensive. (4) Multifocal atrial tachycardia Current Visit: No Status: Acute Code(s): I47.1 - SUPRAVENTRICULAR TACHYCARDIA SNOMED Code(s): 80909577 Comment: - on telemetry. holding coreg currently (5) Urinary retention Current Visit: No Status: Acute Priority: High Code(s): R33.9 - RETENTION OF URINE, UNSPECIFIED SNOMED Code(s): 259001661 Comment: -velasquez w/o hematuria. -continue Flomax/Proscar for severe BPH Status and Disposition: medicine inpatient.
[2019-06-05] MEDS ORDERED: fentaNYL* 50 MCG/ML 2 ML VIAL (100 MCG VIAL) ONE (13:55)
[2019-06-05] MEDS ORDERED: Midazolam* 1 MG/ML 10 ML VIAL (10 MG) ONE (13:56)
--- NOTE | 2019-06-05 14:14 | CONS ---
CC: Dr. Son Colon; Dr. Ozzy Thomas; Dr. Luigi Maier GASTROENTEROLOGY CONSULT REPORT: DATE OF CONSULT: 06/05/19 REQUESTING PROVIDER: Dr. Son Colon. PRIMARY CARE PROVIDER: Dr. Ozzy Thomas. FUGITIVE INVESTIGATOR: Dr. Luigi Maier. REASON FOR CONSULT: Concern for upper GI bleed. HISTORY OF PRESENT ILLNESS: Mr. Borjas is a 69-year-old gentleman with a history of nonischemic cardiomyopathy with depressed EF, hypertension, obesity, chronic bladder outlet obstruction with Dodd catheter, and recent admission for congestive heart failure, who presents with melena. Mr. Borjas was recently hospitalized from 05/20/19 to 05/29/19 with new onset of systolic heart failure. Ejection fraction measured at 25% to 30%. He was noted to have nonsustained V-tach and multifocal atrial tachycardia during that admission. He was placed on beta-blockers, diuretics and on ARBs. He developed issues with urinating, and a Dodd catheter was placed. Catheter was maintained on discharge. Of note, CT chest on 05/21/19 demonstrated surgical clips in the lower mediastinum at the GE junction consistent with a past Briana fundoplication. When asked about this surgery, the patient report that he had significant bleeding episode 20 years ago. He states that this was attributed to a hiatal hernia. He then underwent a hiatal hernia surgery. He has not had any issues with reflux or GI bleeding since this time. No prior colonoscopy. In regards to current admission, the patient was doing well at home until Thursday morning. He began to have black diarrhea. He denies seeing any red blood with the stool. He reported a little bit of nausea without vomiting. No abdominal pain. Diarrhea persisted throughout the day. His brother brought him to the ER in the afternoon. He was seen in the ED and his hemoglobin was noted to be 14 initially (down from 15.5 on discharge recently). He had black stool several times while in the ER. Admitted to Medicine. On interview, Mr. Borjas states that he is feeling well this morning. The diarrhea has largely stopped. He had a small episode of slightly more formed black stool at 4 a.m and again at 9 or 10 a.m. He reports feeling thirsty, but denies feeling hungry. No chest pain or shortness of breath. The patient denies any NSAID use other than aspirin 81 mg daily. PAST MEDICAL HISTORY: 1. New diagnosis of nonischemic cardiomyopathy with EF of 25% to 30%. 2. Hypertension. 3. Obesity. 4. Chronic edema with venous stasis ulcers. 5. BPH with difficulty urinating and Dodd catheter. 6. Nonsustained V-tach and multifocal atrial tachycardia. 7. Hiatal hernia s/p fundoplication (per patient) -- 20 yrs ago MEDICATIONS: Home meds per the H and P include: 1. Tylenol as needed. 2. Carvedilol 12.5 mg twice daily. 3. Finasteride 5 mg daily. 4. Spironolactone 25 mg daily. 5. Tamsulosin 0.4 mg at bedtime. 6. Torsemide 20 mg daily. 7. Valsartan 80 mg twice daily. ALLERGIES: No known drug allergies. SOCIAL HISTORY: The patient lives alone. Denies any alcohol use. No drug use. No tobacco use. FAMILY HISTORY: Father with prostate cancer. Mother with diabetes. No known GI or liver disease. REVIEW OF SYSTEMS: Complete review of systems negative except as mentioned above. PHYSICAL EXAM: Vital Signs: Afebrile, heart rate 80s, blood pressure 113/77, 98% on room air, respiratory rate of 22. General: Chronically ill-appearing gentleman. Resting in bed. No acute distress. Brother at bedside. HEENT: Mucous membranes moist. Cardiovascular: Regular rate and rhythm. Lungs: Breathing comfortably. Abdomen: Soft, nontender, nondistended. Positive bowel sounds. : Dodd catheter present. Musculoskeletal: Trace bilateral edema. DIAGNOSTIC STUDIES/LAB DATA: Labs reviewed. Hemoglobin was 14 on admission as compared to 15.5 on 05/28/19. Hemoglobin trend has been: 13.7 to 12.7 to 12.4 to 12.2 to 12.2. MCV is 91. INR is 1.07. BUN elevated at 84, creatinine 1.46. Imaging: No imaging this admission. CT chest during last admission did note surgical clips in the lower mediastinum and near the gastroesophageal junction. IMPRESSION AND RECOMMENDATION: Mr. Borjas is a 69-year-old gentleman with a recent diagnosis of nonischemic cardiomyopathy with depressed ejection fraction, who is admitted with acute onset melena. The patient reports that he has clinically improved overall since his hospitalization for new onset congestive heart failure last week. Denies any cardiopulmonary symptoms at present. Reports roughly 24 hours of black diarrhea. Hemoglobin has dropped from his baseline, although Hgb has reassuringly stabilized over the last few checks. BUN elevated disproportionately. The melenic output has decreased significantly. The patient has remained hemodynamically stable. Presentation suggestive of an upper gastrointestinal bleed. He is on aspirin 81 mg daily, but he is not on any other NSAIDs. No other obvious risk factors for upper gastrointestinal bleeding. Hx of hiatal hernia repair twenty years ago without ongoing GERD symptoms. - Continue IV PPI q.12h - Continue n.p.o. Judicious use of IV fluids given recent congestive heart failure admission. - We will plan for EGD this afternoon. Thank you very much for this consult. [id number]/[facility] #: [id number] KRIS
--- NOTE | 2019-06-05 14:39 | PN ---
Progress Note - Progress Note Date of Service: 06/05/19 Note: BRIEF GI POST-PROCEDURE NOTE EGD demonstrated: Severe esophagitis w/ clean-based ulcers in distal esophagus. No active bleeding. Stomach w/ bilious fluid. No blood. Duodenum w/ nodular mucosa but no erosions or ulcers. Severe esophagitis felt to represent source of bleeding. Recommend: PPI BID -- maintain IV for today. Should stay on this dosing until seen for follow-up EGD. Carafate QID (can drop dose(s) if needed if interactions with regular meds as this med is less important than the PPI) Soft diet today Continue to monitor CBC Will need EGD in 8 weeks to reassess Sridevi Bain MD Gastroenterology
--- NOTE | 2019-06-05 16:09 | PRO ---
CC: Son Colon MD; Ozzy Thomas MD; Dr. Maier * DATE OF PROCEDURE: 06/05/19 - ROOM #433 PROCEDURE: EGD. INPATIENT PROVIDER: Son Colon MD PRIMARY PROVIDER: Ozzy Thomas MD TRANSIT MIX OPERATOR: Dr. Maier. INDICATION: The patient admitted with melena. Hemoglobin dropped from 15.5 to 12.2. Melena appears to largely have stopped. The patient is hemodynamically stable. MEDICATIONS GIVEN: Midazolam 4.5 mg IV, Fentanyl 25 mcg IV. DESCRIPTION OF PROCEDURE: Full disclosure of risks was reviewed with the patient as detailed on the consent form. The patient was placed in the left lateral decubitus position and monitored with continuous pulse oximetry, capnography, interval blood pressure monitoring, and direct observation. A bite -block was placed between the patient's teeth. An adult gastroscope was then inserted into the patient's mouth and advanced down the esophagus, into the stomach, and into the distal duodenum. Findings and interventions are described below. FINDINGS: Esophagus was a tubular structure. In the distal esophagus, there was severe esophagitis with clean based ulcerations. No active bleeding seen. Scope was able to advance into the stomach. Stomach was examined in the forward and retroflexed views. There was vazquez bilious fluid in the stomach. No fresh or old blood. No erosions or ulcers. The scope was then advanced into the duodenum to at least the third portion. In the duodenal bulb, there was nodular mucosa without obvious erosions or ulcers. The scope was then withdrawn from the patient. The patient tolerated the procedure well and was recovered in the GI recovery area. IMPRESSION: 1. Complete upper endoscopy to the distal duodenum. 2. Severe esophagitis with clean based ulceration. This is felt to be the source of the patient's upper GI bleeding. 3. Duodenal bulb nodularity. FOLLOWUP: 1. PPI b.i.d. He should remain on this dose until seen in followup by GI. 2. Can use Carafate 4 times a day, although this medication is not necessary as management for esophagitis. Carafate can interact with different medications, so this can either be discontinued or dose(s) dropped to simplify med regimen if needed. 3. Continue to monitor CBC while inpatient to ensure stability. 4. Recommend soft diet for today. 5. Will need repeat EGD in 8 weeks to ensure esophagitis has healed. If duodenal mucosa remains abnormal, then we can obtain biopsies at that time. Thank you very much for this consult. GI will continue to follow along peripherally. Please notify GI if any evidence of recurrent bleeding. [id number]/[facility] #: [id number] MTDD
[2019-06-05 16:44] LABS: Hematocrit 41 % (42-52); Hemoglobin 12.6 g/dL (14.0-18.0)
[2019-06-05] MEDS: Sucralfate TAB* 1 GM PO SCH ×2 (16:48→21:46)
[2019-06-05] MEDS: Tamsulosin CAP* 0.4 MG PO SCH (21:46)
[2019-06-06 00:18] LABS: Hematocrit 37 % (42-52); Hemoglobin 11.9 g/dL (14.0-18.0)
[2019-06-06 06:19] LABS: ABS Basophils 0.1 10^3/ul (0-0.2); ABS Eosinophils 0.1 10^3/ul (0-0.6); ABS Lymphocytes 0.8 10^3/ul (1.0-4.8); ABS Monocytes 0.9 10^3/ul (0-0.8); ABS Neutrophils 6.8 10^3/ul (1.5-7.7); Eosinophil % 1.7 %; Hematocrit 36 % (42-52); Hemoglobin 11.7 g/dL (14.0-18.0); Lymphocyte % 9.5 %; Mean Corpuscular HGB Conc 33 g/dL (31-36); Mean Corpuscular Hemoglobin 30 pg (27-31); Mean Corpuscular Volume 91 fL (80-94); Mean Platelet Volume 9.9 fL (7.4-10.4); Platelet Count 246 10^3/uL (150-450); Red Blood Count 3.93 10^6 /uL (4.18-5.48); Red Cell Distribution Width 17 % (10-15); White Blood Count 8.7 10^3/uL (3.5-10.8)
[2019-06-06 06:39] LABS: BUN/Creatinine Ratio 43.2 (8-20); Calcium 8.8 mg/dL (8.6-10.3); EGFR African American 58.1 (>60); Potassium 4.4 mmol/L (3.5-5.0)
[2019-06-06] MEDS: Sucralfate TAB* 1 GM PO SCH ×2 (07:30→11:26)
[2019-06-06 08:01] VITALS: BP 152/93
[2019-06-06] MEDS: Carvedilol TAB* 6.25 MG PO SCH (10:04)
[2019-06-06] MEDS: Finasteride TAB* 5 MG PO SCH (10:04)
[2019-06-06] MEDS: Pantoprazole IV* 40 MG IV SCH (10:05)
[2019-06-06 12:25] LABS: Hematocrit 35 % (42-52); Hemoglobin 11.4 g/dL (14.0-18.0)
--- NOTE | 2019-06-08 10:39 | DS ---
DISCHARGE SUMMARY: DATE OF ADMISSION: 06/04/19 DATE OF DISCHARGE: 06/06/19 ADMITTING PROVIDER: Nazia Higgins NP. PRIMARY CARE PHYSICIAN: Ozzy Thomas MD. CONSULTING INTEGRATION SOLUTION ARCHITECT: Sridevi Bain MD. ATTENDING PHYSICIAN ON THE DAY OF DISCHARGE: Son Colon MD. OUTPATIENT DOCUMENTATION LEAD: Dr. Maier. CHIEF COMPLAINT: Black tarry stools. PRINCIPAL DIAGNOSIS: Melena secondary to severe esophagitis with clean based ulceration causing acute blood loss anemia. HISTORY OF PRESENT ILLNESS: Tone Borjas is a 69-year-old male with PMH of recent diagnosis of severe systolic heart failure, EF 25% to 30%, nonischemic cardiomyopathy, nonsustained V-tach, bladder outlet obstruction currently with Dodd. He had just been discharged from the hospital on . Please see H&P of Nazia Higgins for full details, but he had been feeling well at home. He had followed up with his PCP and Dr. Maier. His aspirin had been stopped and torsemide had been cut in half as he was thought to be euvolemic. The night prior to admission, he started having nausea and then diarrhea that was very dark. It was progressive and he became incontinent of stool. He presented to [facility] Emergency Room and his hemoglobin was 14.0. He had 2 episodes of melena in the emergency room. He was started on IV Protonix, IV fluids, put on telemetry. GI was consulted and he had an EGD performed by Dr. Bain on 06/05/19. His hemoglobin had dropped to 12.2 after serial monitoring, but the melena had become much less frequent. The EGD showed severe esophagitis with clean based ulceration with no active bleeding. He was advised to start PPI po b.i.d. and consideration for Carafate up to 4 times a day if it would not impact his other important cardiac medications, soft diet that day and a repeat EGD in 8 weeks. By the next morning, his hemoglobin has slowly drifted down to 11.4. He was normotensive without tachycardia and had no further melena. He is considered stable for discharge to home with outpatient followup with GI with planned EGD in 8 weeks. Of note, his catheter initially had clear yellow urine. That bag was changed from pediatric size bag to an adult Dodd bag aiding comfort and the night prior to admission, he did have one twinge of pain near the area and had developed some hematuria in the morning without any blood clots. He was scheduled to follow up with his urologist in approximately 3 weeks at the end of the month. We will consider voiding trial. His creatinine on admission had been 1.32 and on discharge 1.46. DISCHARGE MEDICATIONS: Include: 1. Tylenol 650 mg p.o. q.6 hours. 2. Carvedilol 12.5 mg p.o. b.i.d. 3. Proscar 5 mg p.o. daily. 4. Protonix 40 mg p.o. b.i.d. (new). 5. Spironolactone 25 mg p.o. daily. 6. Carafate 1 g p.o. 4 times a day (new). 7. Tamsulosin 0.4 mg p.o. at bedtime. 8. Torsemide 20 mg p.o. daily. 9. Losartan 80 mg p.o. b.i.d. DISPOSITION: Home. CONDITION: Improved. DIET: Soft diet for the next 3 days and then heart healthy. FOLLOWUP: The patient should follow up with primary care, Dr. Ozzy Thomas, within [address] Brower as scheduled and Dr. Bain within 8 weeks for repeat EGD. TIME SPENT ON DISCHARGE: Thirty five minutes. [id number]/CPS #: [id number] MTDD
== END 2019-06-06 14:12 | disposition home health service (06) | DRG 378 ==
LOC: ED 16:43 → MEDTELE 19:43
PROVIDERS: ADMIT Nurse Practitioner Adult Health; ATTEND Internal Medicine
PROC: 0DJ08ZZ Inspection of Upper Intestinal Tract, Via Natural or Artificial Opening Endoscopic (ICD-10-PCS; principal; 2019-06-05)
DX: K92.1 Melena (principal); K22.10 Ulcer of esophagus without bleeding; D62 Acute posthemorrhagic anemia; I50.20 Unspecified systolic (congestive) heart failure; I42.8 Other cardiomyopathies; I47.2 Ventricular tachycardia; I47.1 Supraventricular tachycardia; I11.0 Hypertensive heart disease with heart failure; N32.0 Bladder-neck obstruction; R31.9 Hematuria, unspecified; N40.1 Benign prostatic hyperplasia with lower urinary tract symptoms; R33.8 Other retention of urine; E66.9 Obesity, unspecified; I87.2 Venous insufficiency (chronic) (peripheral); E87.6 Hypokalemia; Z79.1 Long term (current) use of non-steroidal anti-inflammatories (NSAID); Z68.36 Body mass index [BMI] 36.0-36.9, adult; Z79.899 Other long term (current) drug therapy; Z83.3 Family history of diabetes mellitus; Z80.42 Family history of malignant neoplasm of prostate
CPT/HCPCS: 36415; 80048; 80053; 82270; 85014; 85018; 85025; 85610; 86850; 86900; 86901; 90686; 96374; 99156; 99157; 99283; A9270-GY; G8978-GP-CH; G8979-GP-CH; G8980-GP-CH; J2250; J3010

== ENCOUNTER 2019-06-07 18:52 | Emergency (ER) | payer MEDICARE ==
[2019-06-07] MEDS: NS 0.9% 1000 ML** 1,000 ML IV ONE (20:11)
[2019-06-07 21:46] LABS: ABS Eosinophils 0.1 10^3/ul (0-0.6); ABS Lymphocytes 0.7 10^3/ul (1.0-4.8); ABS Monocytes 1.1 10^3/ul (0-0.8); ABS Neutrophils 9.1 10^3/ul (1.5-7.7); Eosinophil % 1.2 %; Hematocrit 35 % (42-52); Hemoglobin 11.4 g/dL (14.0-18.0); Lymphocyte % 6.1 %; Mean Corpuscular HGB Conc 33 g/dL (31-36); Mean Corpuscular Hemoglobin 29 pg (27-31); Mean Corpuscular Volume 90 fL (80-94); Mean Platelet Volume 9.8 fL (7.4-10.4); Platelet Count 263 10^3/uL (150-450); Red Blood Count 3.89 10^6 /uL (4.18-5.48); Red Cell Distribution Width 17 % (10-15)
[2019-06-07 22:03] LABS: Albumin 3.5 g/dL (3.2-5.2); Albumin/Globulin Ratio 1.1 (1-3); BUN/Creatinine Ratio 25.6 (8-20); C Reactive Protein 75.01 mg/L (<8.01); Calcium 8.7 mg/dL (8.6-10.3); EGFR African American 37.2 (>60); EGFR Non-African American 30.7 (>60); Globulin 3.1 g/dL (2-4); Potassium 4.4 mmol/L (3.5-5.0); Total Bilirubin 0.8 mg/dL (0.2-1.0); Total Protein 6.6 g/dL (6.4-8.9)
[2019-06-08] MEDS: Tamsulosin CAP* 0.4 MG PO ONE (02:23)
--- NOTE | 2019-06-08 02:35 | ED ---
GI/ HPI - HPI Summary HPI Summary: Patient complains of indwelling catheter not draining since yesterday with abdominal cramping developing today.. Denies any other pain, injury or symptoms. Dr. Brower called to say do not change catheter as it is likely to be very difficult to replace. Patient has a history of dehydration which causes decrease in urination. - History of Current Complaint Chief Complaint: EDUrogenitalProblems Time Seen by Provider: 06/07/19 19:37 Stated Complaint: CATHET PROBLEM PER BROTHER Hx Obtained From: Patient Onset/Duration: Started Hours Ago Timing: Constant Severity: Mild Current Severity: Moderate Pain Intensity: 8 Location of Pain: Diffuse Pain Characteristics: Cramping Associated Signs and Symptoms: Positive: Dysuria, Abdominal Pain - Additional Pertinent History Primary Care Physician: RUTH ANN - Allergy/Home Medications Allergies/Adverse Reactions: Allergies Allergy/AdvReac Type Severity Reaction Status Date / Time No Known Allergies Allergy Verified 05/20/19 10:14 PMH/Surg Hx/FS Hx/Imm Hx Endocrine/Hematology History: Reports: Hx Blood Transfusions Denies: Hx Anticoagulant Therapy, Hx Diabetes Cardiovascular History: Reports: Hx Hypertension Denies: Hx Angina, Hx Coronary Artery Disease, Hx Hypercholesterolemia, Hx Myocardial Infarction, Hx Pacemaker/ICD, Hx Peripheral Vascular Disease, Hx Valvular Heart Disease Respiratory History: Denies: Hx Asthma, Hx Chronic Obstructive Pulmonary Disease (COPD) GI History: Reports: Hx Gastroesophageal Reflux Disease, Hx Hiatal Hernia - surgically repaired History: Denies: Hx Chronic Renal Failure Sensory History: Reports: Hx Contacts or Glasses - Magnifer for reading Denies: Hx Hearing Aid Opthamlomology History: Reports: Hx Contacts or Glasses - Magnifer for reading Neurological History: Denies: Hx Seizures, Hx Transient Ischemic Attacks (TIA) Psychiatric History: Reports: Other Psychiatric Issues/Disorders - per brother - 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 Denies: Hx Anxiety - Surgical History Surgery Procedure, Year, and Place: Laproscopic hiatal hernia repair after hiatal hernia trauma, required blood transfusion Infectious Disease History: No Infectious Disease History: Denies: Traveled Outside the [place] in Last 30 Days - Family History Known Family History: Positive: Hypertension - Social History Alcohol Use: None Hx Substance Use: No Substance Use Type: Reports: None Hx Tobacco Use: Yes Smoking Status (MU): Former Smoker Review of Systems Constitutional: Negative Eyes: Negative ENT: Negative Cardiovascular: Negative Respiratory: Negative Positive: Abdominal Pain Positive: other Musculoskeletal: Negative Skin: Negative Neurological: Negative Psychological: Normal All Other Systems Reviewed And Are Negative: Yes Physical Exam - Summary Physical Exam Summary: Abdomen soft nontender. Triage Information Reviewed: Yes Vital Signs On Initial Exam: Initial Vitals Temp Pulse Resp BP Pulse Ox 97.6 F 84 18 108/70 93 06/07/19 19:03 06/07/19 19:03 06/07/19 19:03 06/07/19 19:03 06/07/19 19:03 Vital Signs Reviewed: Yes Appearance: Positive: Well-Appearing Skin: Positive: Warm Head/Face: Positive: Normal Head/Face Inspection Eyes: Positive: Normal Neck: Positive: Supple Respiratory/Lung Sounds: Positive: Clear to Auscultation Cardiovascular: Positive: Normal Abdomen Description: Positive: Nontender Musculoskeletal: Positive: Normal Neurological: Positive: Normal Psychiatric: Positive: Normal AVPU Assessment: Alert - Catano Coma Scale Best Eye Response: 4 - Spontaneous Best Motor Response: 6 - Obeys Commands Best Verbal Response: 5 - Oriented Coma Scale Total: 15 Procedures - Sedation Patient Received Moderate/Deep Sedation with Procedure: No Diagnostics - Vital Signs Vital Signs Temp Pulse Resp BP Pulse Ox 06/08/19 02:20 89 91 06/08/19 02:13 90 135/82 94 06/08/19 01:00 90 95 06/08/19 00:58 89 131/91 96 06/08/19 00:24 90 120/67 94 06/08/19 00:06 85 93 06/08/19 00:04 87 92 06/08/19 00:03 118/78 06/07/19 21:54 127/83 06/07/19 21:24 128/76 06/07/19 19:03 97.6 F 84 18 108/70 93 - Laboratory Lab Results: Lab Results 06/07/19 06/07/19 Range/Units 21:38 21:38 WBC 11.0 H (3.5-10.8) 10^3/uL RBC 3.89 L (4.18-5.48) 10^6 /uL Hgb 11.4 L (14.0-18.0) g/dL Hct 35 L (42-52) % MCV 90 (80-94) fL MCH 29 (27-31) pg MCHC 33 (31-36) g/dL RDW 17 H (10-15) % Plt Count 263 (150-450) 10^3/uL MPV 9.8 (7.4-10.4) fL Neut % (Auto) 82.5 % Lymph % (Auto) 6.1 % Thurston % (Auto) 9.9 % Eos % (Auto) 1.2 % Baso % (Auto) 0.3 % Absolute Neuts (auto) 9.1 H (1.5-7.7) 10^3/ul Absolute Lymphs (auto) 0.7 L (1.0-4.8) 10^3/ul Absolute Monos (auto) 1.1 H (0-0.8) 10^3/ul Absolute Eos (auto) 0.1 (0-0.6) 10^3/ul Absolute Basos (auto) 0.0 (0-0.2) 10^3/ul Absolute Nucleated RBC 0.0 10^3/ul Nucleated RBC % 0.0 Sodium 133 L (135-145) mmol/L Potassium 4.4 (3.5-5.0) mmol/L Chloride 103 (101-111) mmol/L Carbon Dioxide 20 L (22-32) mmol/L Anion Gap 10 (2-11) mmol/L BUN 55 H (6-24) mg/dL Creatinine 2.15 H (0.67-1.17) mg/dL Est GFR ( Amer) 37.2 (>60) Est GFR (Non-Af Amer) 30.7 (>60) BUN/Creatinine Ratio 25.6 H (8-20) Glucose 105 H (70-100) mg/dL Calcium 8.7 (8.6-10.3) mg/dL Total Bilirubin 0.80 (0.2-1.0) mg/dL AST 23 (13-39) U/L ALT 28 (7-52) U/L Alkaline Phosphatase 95 (34-104) U/L C-Reactive Protein 75.01 H (<8.01) mg/L Total Protein 6.6 (6.4-8.9) g/dL Albumin 3.5 (3.2-5.2) g/dL Globulin 3.1 (2-4) g/dL Albumin/Globulin Ratio 1.1 (1-3) Result Diagrams: 06/07/19 21:38 06/07/19 21:38 Lab Statement: Any lab studies that have been ordered have been reviewed, and results considered in the medical decision making process. GIGU Course/Dx - Course Course Of Treatment: Patient complains of indwelling catheter not draining since yesterday with abdominal cramping developing today.. Denies any other pain, injury or symptoms. Dr. Brower called to say do not change catheter as it is likely to be very difficult to replace. Patient has a history of dehydration which causes decrease in urination. Vital signs within normal limits. Ladder scan on presentation of patient was 0. Bladder scan after 1 L 0. Bladder scan after 2 L of normal saline 0. Ultrasound was performed by attending Dr. Ren at this time which indicated full bladder. Catheter was flushed and 140 mL's went in, but none came out. Discussed patient situation with urology Dr. Brower who recommended removing catheter and trying size 16 coud. Coud was successful, urine was drained in stages to avoid hypotension. When urine was completely drained, patient was discharged home to follow up with Dr. Brower tomorrow. Vital signs within normal limits. Labs at patient baseline. - Diagnoses Provider Diagnoses: Dodd catheter problem Discharge ED - Sign-Out/Discharge Documenting (check all that apply): Patient Departure - Discharge Plan Condition: Stable Disposition: HOME Patient Education Materials: Dodd Catheter Placement and Care (ED) Referrals: Ozzy Thomas MD [Primary Care Provider] - Wilbert Brower MD [Medical Doctor] - Additional Instructions: Follow-up with Urology Dr. Brower for further evaluation. Return to the ED for any worsening symptoms. - Billing Disposition and Condition Condition: STABLE Disposition: Home - Attestation Statements Provider Attestation: Patient with an indwelling catheter that is not draining. Patient was given 2 L IV fluid as well as bladder scan showed 0 urine in his bladder. Bedside ultrasound showed over a liter of urine in his bladder. Urology was called and they recommended taking out his catheter and putting in a smaller catheter. Successfully done by the nurse with subsequent draining.
[2019-06-08 03:11] LABS: Urine Appearance Cloudy; Urine Bacteria Absent (Absent); Urine Bilirubin Negative (Negative); Urine Blood 2+ (Negative); Urine Color Yellow; Urine Glucose Negative (Negative); Urine Ketones Negative (Negative); Urine Nitrite Negative (Negative); Urine Protein Negative (Negative); Urine Red Blood Cell 3+(>10/hpf) (Absent); Urine Urobilinogen Negative (Negative); Urine White Blood Cell Absent (Absent)
[2019-06-08 03:46] VITALS: BP 118/73
== END 2019-06-08 03:45 | disposition home or self-care (01) ==
LOC: ED 18:52
DX: T83.9XXA Unspecified complication of genitourinary prosthetic device, implant and graft, initial encounter (principal); I10 Essential (primary) hypertension; K21.9 Gastro-esophageal reflux disease without esophagitis; Z87.891 Personal history of nicotine dependence; Z79.899 Other long term (current) drug therapy
CPT/HCPCS: 36415; 80053; 81003; 81015; 85025; 86140; 96360; 99283

== ENCOUNTER 2019-08-27 13:00 | Emergency (ER) | payer MEDICARE ==
[2019-08-27 13:16] VITALS: BP 126/88
--- NOTE | 2019-08-27 14:19 | ED ---
Skin Complaint - HPI Summary HPI Summary: Patient is a 69 y/o M presenting to the ED for a chief complaint of an abscess to the right chin that began one week ago. Patient notes bloody drainage from the area and worsening swelling of the area. He states the abscess began as a pimple and worsened to a boil on his right chin. He reports the boil opened and mucous-like fluid drained from the area, but the fluid stopped because a scab formed over the opening. Patient denies shortness of breath, difficulty swallowing, or fever. Patient denies any aggravating or alleviating factors. PMHx is significant for CHF. Patient was seen at [facility] in May and has had a catheter in place since then. - History of Current Complaint Chief Complaint: EDGeneral Time Seen by Provider: 08/27/19 14:14 Stated Complaint: BOIL ON NECK PER PT Hx Obtained From: Patient Onset/Duration: Atraumatic, Still Present Skin Exposure Onset/Duration: Days Ago - 1 week ago Timing: Constant Onset Severity: Mild Current Severity: Mild Pain Intensity: 0 Pain Scale Used: 0-10 Numeric Skin Location: Face - Right chin Character: Swelling Aggravating Symptom(s): Nothing Alleviating Symptom(s): Nothing Associated Signs & Symptoms: Drainage - Bloody and mucous-like - Additional Pertinent History Primary Care Physician: RUTH ANN - Allergy/Home Medications Allergies/Adverse Reactions: Allergies Allergy/AdvReac Type Severity Reaction Status Date / Time No Known Allergies Allergy Verified 08/27/19 13:15 Home Medications: Home Medications Aspirin [Aspirin EC] 81 mg PO DAILY 08/27/19 [History Confirmed 08/27/19] Losartan Potassium 100 mg PO DAILY 08/27/19 [History Confirmed 08/27/19] Potassium Chlor TAB* [Klor Con ER TAB 10 MEQ*] 10 meq PO DAILY 08/27/19 [ History Confirmed 08/27/19] Sucralfate [Carafate] 1 gm PO QID 08/27/19 [History Confirmed 08/27/19] PMH/Surg Hx/FS Hx/Imm Hx Previously Healthy: Yes Endocrine/Hematology History: Reports: Hx Blood Transfusions Denies: Hx Anticoagulant Therapy, Hx Diabetes Cardiovascular History: Reports: Hx Congestive Heart Failure, Hx Hypertension Denies: Hx Angina, Hx Coronary Artery Disease, Hx Hypercholesterolemia, Hx Myocardial Infarction, Hx Pacemaker/ICD, Hx Peripheral Vascular Disease, Hx Valvular Heart Disease Respiratory History: Denies: Hx Asthma, Hx Chronic Obstructive Pulmonary Disease (COPD) GI History: Reports: Hx Gastroesophageal Reflux Disease, Hx Hiatal Hernia - surgically repaired History: Denies: Hx Chronic Renal Failure Sensory History: Reports: Hx Contacts or Glasses - Magnifer for reading Denies: Hx Legally Blind, Hx Deafness, Hx Hearing Aid Opthamlomology History: Reports: Hx Contacts or Glasses - Magnifer for reading Denies: Hx Legally Blind EENT History: Denies: Hx Deafness Neurological History: Denies: Hx Seizures, Hx Transient Ischemic Attacks (TIA) Psychiatric History: Reports: Other Psychiatric Issues/Disorders - per brother - 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 Denies: Hx Anxiety - Surgical History Surgical History: Yes Surgery Procedure, Year, and Place: Laproscopic hiatal hernia repair after hiatal hernia trauma, required blood transfusion Infectious Disease History: No Infectious Disease History: Denies: Traveled Outside the [place] in Last 30 Days - Family History Known Family History: Positive: Hypertension - Social History Occupation: Retired Lives: With Family Alcohol Use: None Hx Substance Use: No Substance Use Type: Reports: None Hx Tobacco Use: Yes Smoking Status (MU): Former Smoker Review of Systems Negative: Fever Positive: Other - Negative difficulty swallowing Negative: Shortness Of Breath Positive: other - Positive catheter in place Positive: Edema - Under the right chin Positive: Other - Positive abscess on the right chin with bloody drainage All Other Systems Reviewed And Are Negative: Yes Physical Exam - Summary Physical Exam Summary: Constitutional: Well-developed, Well-nourished, Alert. (-) Distressed Skin: Warm, Dry HENT: Normocephalic; Atraumatic Eyes: Conjunctiva normal Neck: Musculoskeletal ROM normal neck. (-) JVD, (-) Stridor, (-) Nuchal rigidity. Large 5 by 4 induration on the right neck with necrotic center oozing pus. Cardio: Rhythm regular, rate normal, Heart sounds normal; Intact distal pulses; Radial pulses are 2+ and symmetric. (-) Murmur Pulmonary/Chest wall: Effort normal. (-) Respiratory distress, (-) Wheezes, (-) Rales Abd: Soft, (-) tenderness, (-) Distension, (-) Guarding, (-) Rebound Musculoskeletal: (-) Edema Lymph: (+) Cervical adenopathy Neuro: Alert, Oriented x3 Psych: Mood and affect Normal Triage Information Reviewed: Yes Vital Signs On Initial Exam: Initial Vitals Temp Pulse Resp BP Pulse Ox 97.9 F 82 16 126/88 95 08/27/19 13:12 08/27/19 13:12 08/27/19 13:12 08/27/19 13:12 08/27/19 13:12 Vital Signs Reviewed: Yes Procedures - Sedation Patient Received Moderate/Deep Sedation with Procedure: No - Incision and Drainage Right Anterior Neck Site: Right anterior neck Anesthesia: Other - [place] spray Instrument(s): Scalpel - Linear incision Packing: Drain - Moderate amount of drainage that was tolerated well Diagnostics - Vital Signs Vital Signs Temp Pulse Resp BP Pulse Ox 08/27/19 13:12 97.9 F 82 16 126/88 95 - Laboratory Result Diagrams: 08/27/19 15:12 08/27/19 15:12 Lab Statement: Any lab studies that have been ordered have been reviewed, and results considered in the medical decision making process. - CT Neck CT CT Interpretation Completed By: Radiologist Summary of CT Findings: Neck CT IMPRESSION: 1. THERE IS FOCAL SKIN THICKENING ASSOCIATED WITH A SOFT TISSUE DENSITY MASS PRESENT IN THE SUBCUTANEOUS TISSUES IN THE RIGHT SUBMANDIBULAR REGION. CENTRALLY THERE IS MILD DECREASED DENSITY WHICH MAY REPRESENT AN EARLY ABSCESS OR NECROSIS. THIS IS A NONSPECIFIC FINDING AND LIKELY REPRESENTS A INFECTIOUS PROCESS ALTHOUGH A NEOPLASTIC MASS CANNOT BE EXCLUDED. RECOMMEND CLINICAL CORRELATION AND FOLLOW-UP TO RESOLUTION. 2. THERE IS A FOCAL AREA OF NARROWING OF THE SUPRAGLOTTIC LARYNX WITH MILD SURROUNDING SOFT TISSUE DENSITY. THE SOFT TISSUE DENSITY MAY REPRESENT NORMAL VARIATION ALTHOUGH A MASS CANNOT BE EXCLUDED. RECOMMEND DIRECT INSPECTION FOR FURTHER EVALUATION. 3. ECTASIA OF THE VISUALIZED THORACIC AORTA. Reviewed by Dr. Yoon. Course/Dx - Course Course Of Treatment: 69 y/o male p/w L neck/chin abscess. - PE w significant induration (5 cm) or R neck w moderate purulent discharge. - no trouble swallowing, JACOBY, trismus. CT scan w e/o cellulitis/abscess, possible laryngeal mass. - I&D performed w moderate purulent discharge. - given clindamycin, ENT follow up - Diagnoses Provider Diagnoses: Neck abscess Discharge ED - Sign-Out/Discharge Documenting (check all that apply): Patient Departure - Discharge - Discharge Plan Condition: Stable Disposition: HOME Prescriptions: Clindamycin Cap(NF) [Clindamycin Cap 300 mg Cap(NF)] 300 mg PO Q6H 7 Days #28 cap Patient Education Materials: Abscess (ED) Referrals: Ozzy Thomas MD [Primary Care Provider] - Ralph Frederick MD [Medical Doctor] - Additional Instructions: You were seen in the emergency department for a neck abscess. Your CT scan showed some swelling with possible abscess but also concern for a mass in your larynx. Please follow up with ENT regarding this. Clindamycin 4 times a day for 7 days. Please follow up with your primary care doctor in next 2-3 days and return to emergency department for worsening pain, fevers, trouble swallowing or breathing or concerning symptoms. It was a pleasure taking care of you today. - Billing Disposition and Condition Condition: STABLE Disposition: Home - Attestation Statements Document Initiated by Kyara: Yes Documenting Scribe: Elva Mcpherson Provider For Whom Kyara is Documenting (Include Credential): Aries Yoon MD Scribe Attestation: Elva Nelson, scribed for Aries Yoon MD on 08/27/19 at 1844. Scribe Documentation Reviewed: Yes Provider Attestation: The documentation as recorded by the Elva hoffman accurately reflects the service I personally performed and the decisions made by , Aries Yoon MD Status of Scribe Document: Viewed
[2019-08-27] MEDS ORDERED: Clindamycin 600 MG/D5W BAG(*) 600 MG/50 ML BAG IV ONE (14:57)
[2019-08-27 15:24] LABS: ABS Basophils 0.1 10^3/ul (0-0.2); ABS Eosinophils 0.2 10^3/ul (0-0.6); ABS Lymphocytes 1.1 10^3/ul (1.0-4.8); ABS Monocytes 1.1 10^3/ul (0-0.8); ABS Neutrophils 7.8 10^3/ul (1.5-7.7); Eosinophil % 2.3 %; Hematocrit 38 % (42-52); Hemoglobin 12.7 g/dL (14.0-18.0); Lymphocyte % 10.6 %; Mean Corpuscular HGB Conc 34 g/dL (31-36); Mean Corpuscular Hemoglobin 30 pg (27-31); Mean Corpuscular Volume 89 fL (80-94); Mean Platelet Volume 9.3 fL (7.4-10.4); Platelet Count 226 10^3/uL (150-450); Red Blood Count 4.24 10^6 /uL (4.18-5.48); Red Cell Distribution Width 17 % (10-15); White Blood Count 10.3 10^3/uL (3.5-10.8)
[2019-08-27 15:37] LABS: Albumin 3.8 g/dL (3.2-5.2); Albumin/Globulin Ratio 1.1 (1-3); BUN/Creatinine Ratio 21.8 (8-20); Calcium 9.1 mg/dL (8.6-10.3); EGFR African American 64.7 (>60); EGFR Non-African American 53.5 (>60); Globulin 3.5 g/dL (2-4); Potassium 4.4 mmol/L (3.5-5.0); Total Bilirubin 0.5 mg/dL (0.2-1.0); Total Protein 7.3 g/dL (6.4-8.9)
[2019-08-27] MEDS ORDERED: Iodixanol* (CONTRAST) 320 MG/ML 100 ML SDV IV ONE (15:45)
--- NOTE | 2019-08-28 08:28 | ED ---
Imaging and Labs Follow Up Follow Up Type: Labs/Cultures Labs/Culture Result: Wound culture resulted as MSSA positive and MRSA positive Patient Communication/Plan: Patient treated with clindamycin. Waiting sensitivity report. Patient presumed treated appropriately. Provider Diagnoses: Neck abscess
== END 2019-08-27 17:45 | disposition home or self-care (01) ==
LOC: ED 13:00
DX: L02.11 Cutaneous abscess of neck (principal); I11.0 Hypertensive heart disease with heart failure; I50.9 Heart failure, unspecified; K21.9 Gastro-esophageal reflux disease without esophagitis; Z87.891 Personal history of nicotine dependence; Z79.82 Long term (current) use of aspirin; Z79.899 Other long term (current) drug therapy
CPT/HCPCS: 10060; 36415; 70491; 80053; 85025; 87070; 87077; 87186; 87205; 87640; 87641; 96365; 99282; Q9967